=== PATIENT | female | born 1965 | race Caucasian/White ===

== ENCOUNTER 2019-02-28 07:19 | Emergency (ER) | payer BC, SELFPAY ==
[2019-02-28 07:32] VITALS: BP 136/79; PULSE 83; RESP 20; TEMP 36.8; O2SAT 98
[2019-02-28 07:53] LABS: Abs Immature Grans 0.01 k/cumm (0.0-0.09); Absolute Basophil Count 0.03 k/cumm (0.0-0.2); Absolute Eosinophil Count 0.13 k/cumm (0.0-0.7); Absolute Lymphocyte Count 1.66 k/cumm (1.2-3.4); Absolute Monocyte Count 0.49 k/cumm (0.11-0.7); Basophils % 0.5; Eosinophils % 2.3; HCT 44.2 % (36.0-46.0); HGB 14.7 g/dL (12.0-15.5); Immature Grans % 0.2; Mean Corp. HGB Concentration 33.3 g/dL (32.0-36.0); Mean Corpuscular Hemoglobin 31.4 pg (27.0-33.0); Mean Corpuscular Volume 94.4 fL (80-95); Mean Platelet Volume 10.4 fL (8.0-11.0); Monocytes % 8.6; Neutrophils % 59.4; Platelet Count 266 x1000/uL (130-400); RBC 4.68 m/cumm (4.00-5.20); RBC Distribution Width 13.5 % (11.7-14.6); White Blood Cell Count 5.72 k/cumm (4.4-10.8)
--- NOTE | 2019-02-28 07:56 | DI.CT_ITS ---
SYMPTOM/DIAGNOSIS: RLQ PAIN ABDOMEN AND PELVIC CT: There are no prior comparison exams. The exam was performed after IV contrast. The lung bases are clear. The liver, gallbladder, spleen, pancreas, kidneys and adrenals have a normal appearance. The appendix is normal. There is diverticulosis involving the lower descending and sigmoid colon but no evidence of diverticulitis. There is no bowel dilatation or wall thickening. There is no free air or free fluid. The uterus, ovaries and bladder are unremarkable. No suspicious bony abnormalities are seen. IMPRESSION: Diverticulosis without evidence of diverticulitis. No acute abnormality is seen.
--- NOTE | 2019-02-28 07:56 | ED.GENADUL_ITS ---
Discharge Plan Disposition Patient Disposition: HOME Condition: Stable Discharge Details Chief Complaint: Abd Prob Clinical Impression: Abdominal pain, Hemorrhoid Primary Care Provider: Tayler Marshall V ED Provider: Babak Quintanilla Home Meds and New Rx's Prescriptions: Continued levothyroxine [Synthroid] 112 MCG tablet 112 mcg PO DAILY RF: 0 alprazolam [Xanax] 2 MG tablet 2 mg PO PRN RF: 0 Humira 40 MG/0.8 ML kit 40 mg SQ TWice a month RF: 0 Discharge Instructions Instructions: Hemorrhoids (ED) Additional Instructions: you should be contacted for an appointment with general surgery if you feel you are having more pain, bleeding or have new symptoms such as chest pain/pressure or difficulty breathing return to the emergency department Medical Decision Making 54 yo female comes in with several days of rectal bleeding intermittently with bowel movements and some pain with bowel movements, then developed rlq pain. She denies chest pain or sob, no syncope. She has rlq pain without guarding on exam otherwise unremarkable abdominal exam. She is in no distress on exam speaking in full sentences. She does have a hemorrhoid at 9 oclock position on exam without any bleeding now even on internal exam without other abnormalities. Suspect bleeding is due to hemorrhoid but will eval for significant anemia and given rlq pain will image to eval for possible appendicitis pt's labs are unremarkable and remains stable, ct per Dr. Daley unremarkable. Given no bleeding here, no significant anemia and has external hemorrohid feel she can be d/c'd and f/u with general surgery. Return precautions given Differential Diagnosis hemorrhoid, fissure, appendicitis Imaging Data Radiologic Study: Attestation: I personally reviewed and interpreted this imaging study as follows: Imaging: CT Scan Radiologist's impression: no acute findings per Dr. Daley Lab Data Lab results reviewed: Yes I reviewed the patient's lab results. ECG Data Attestation: I personally reviewed and interpreted this ECG (s) as follows: Prior ECG tracings: not available for review Interpretation: sinus rhythm, rate of 71, pr 126, qtc 413, no acute st t wave ischemic findings HPI General Mode of arrival: ambulatory . Date/Time Provider Initiated Documentation: 02/28/19 07:27 . Limitations to Documentation: no limitations . Information obtained by: patient . History of Present Illness 54 year old F presents to the emergency department with the chief complaint of rectal bleeding, described as mild, and it has been constant. No relieving factors improve symptom(s), No exacerbating factors reported . Patient did receive the following treatments prior to arrival, none Related Data Home Medications Medication Instructions Recorded Confirmed levothyroxine [Synthroid] 112 mcg PO DAILY tab-cap 03/19/13 02/28/19 alprazolam [Xanax] 2 mg PO PRN 05/20/14 02/28/19 Humira 40 mg SQ TWice a month kit 09/29/15 02/28/19 Allergies Allergy/AdvReac Type Severity Reaction Status Date / Time ciprofloxacin HCl Allergy Severe SOB, Unverified 02/28/19 07:39 [From Cipro] TONGUE SWELLING Penicillins Allergy Mild UPSET Unverified 02/28/19 07:39 STOMACH General Stated Complaint: Abd Prob VINICIO: 3 Review of Systems Review of Systems All systems reviewed & are unremarkable except as noted in HPI and below Constitutional Denies chills, Denies fever(s) and Denies weakness Cardiovascular Denies chest pain and Denies dyspnea Respiratory Denies cough and Denies dyspnea Gastrointestinal Denies nausea and Denies vomiting Integumentary/Breasts Denies rash Neurologic Denies weakness [facility], [facility] Medical History Anxiety disorder Depression Hypothyroidism Surgical History Removal cyst R ear 09/22 Removal nodules throat10/2012 Social History Smoking/Tobacco Use Status: Current every day Alcohol Intake: current Alcohol Intake frequency: 3 or more drinks per day Substance use type: does not use Do you feel safe at home: Yes Do you feel safe in your relationship?: Yes Exam Const General: no acute distress Orientation: alert HENMT Head: normal to inspection Ears: external ears normal General nose exam: external nose normal Mouth: moist mucous membranes Eyes General: appearance normal, both eyes and all related structures Neck Neck: normal visual inspection Resp Effort & Inspection: normal respiratory effort and able to speak in complete sentences Cardio Rate: regular rate GI Inspection: normal to inspection Palpation: soft Skin General skin exam: no rashes or lesions noted Neuro General: alert and oriented x3 Extrem General: normal to inspection Psych Mental Status: mental status grossly normal Course Vital Signs Temperature 36.8 C 02/28/19 07:32 Pulse 83 02/28/19 07:32 Respiratory Rate 20 02/28/19 07:32 Blood Pressure 136/79 02/28/19 07:32 Pulse Oximetry 98 02/28/19 07:32 Temperature 36.8 C 02/28/19 07:32 Temperature Source Temporal Artery Scan 02/28/19 07:32 Pulse 83 02/28/19 07:32 Respiratory Rate 20 02/28/19 07:32 Respiratory Effort Non-Labored 02/28/19 07:32 Blood Pressure 136/79 02/28/19 07:32 Pulse Oximetry 98 02/28/19 07:32 Oxygen Delivery Method Room Air 02/28/19 07:32 Oxygen Flow Rate 0 02/28/19 07:32
[2019-02-28 08:09] LABS: ALT 29 U/L (12-78); AST 19 U/L (15-37); Albumin 3.8 g/dL (3.4-5.0); Alkaline Phosphatase 88 U/L (46-116); BUN 12 mg/dL (7-18); Bilirubin, Total 0.3 mg/dL (0.2-1.0); CREATININE 0.81 mg/dL (0.55-1.02); Calcium 9.5 mg/dL (8.5-10.1); Chloride 102 mmol/L (98-107); Glucose 101 mg/dL (70-100); Magnesium 1.9 mg/dL (1.8-2.4); Potassium 4.1 mmol/L (3.5-5.1); Sodium 138 mmol/L (136-145); Total Protein 7.8 g/dL (6.4-8.2)
[2019-02-28 08:11] LABS: Troponin I < 0.02 ng/mL (0.00-0.06)
[2019-02-28] MEDS: Omnipaque 350 MG/ML 100 ML BTL IJ (08:36)
[2019-02-28] MEDS: Lactated Ringers 1,000 ML 125 ML IV (08:55)
[2019-02-28 09:06] VITALS: BP 136/79; PULSE 83; RESP 20; TEMP 36.8; O2SAT 98
--- NOTE | 2019-02-28 11:01 | PDOC.ERCMPRO ---
Care Management Progress Note 02/28-Dr. Quintanilla requested assistance with a general surgery f/u within one week for bleeding hemorrhoid. Referral faxed to [facility] General Surgery this am.
--- NOTE | 2019-02-28 11:02 | CMPROGNOTE_ITS ---
Care Management Progress Note 02/28-Dr. Quintanilla requested assistance with a general surgery f/u within one week for bleeding hemorrhoid. Referral faxed to [facility] General Surgery this am.
== END 2019-02-28 09:05 | disposition home or self-care (01) ==
PROVIDERS: Emergency Medicine; Emergency Provider Emergency Medicine; PCP Family Medicine
DX: R10.31 Right lower quadrant pain (principal); K64.9 Unspecified hemorrhoids
CPT/HCPCS: 36415; 80053; 86850; 86900; 86901; 93005; 99285; 74177; 83735; 84484; 85025; 93010; J3490

== ENCOUNTER 2019-04-08 06:15 | Day surgery (SDC) | payer BC, SELFPAY ==
--- NOTE | 2019-04-08 06:26 | W.COLOREPORT ---
Date of service: 04/08/19 Time of Service: 07:30 Colonoscopy Report Date of procedure: 04/08/19 Pre-op diagnosis general: Colon Cancer Screening, Hemorrhoids Post-op diagnosis procedure note: other (Colorectal polyps, internal hemorrhoids, sigmoid diverticulosis) Procedure: Colonoscopy with polypectomies x6 Anoscopy and internal hemorrhoid banding x3 Surgeon: Thao Young Anesthesia proc note operative: other (General/ ASA 2/Kassidy Jack CRNA) Estimated blood loss (mL): 5 Pathology: other (Cecal polyp, sigmoid polyp, rectal polyp x4) Complications: None Disposition: same day Indications: Mrs. Souza is a pleasant 54 year old female who is here today for a screening colonoscopy. She also has had intermittent rectal bleeding from internal hemorrhoids. Risks, benefits and complications have been reviewed. Complications include but are not limited to bleeding, pain, perforation, missed small lesion/polyp, sore throat, aspiration and adverse reaction to the medications. Questions were entertained and answered to their satisfaction and they wished to proceed. No guarantees were given or implied. Prep: Miralax/Dulcolax Procedure Start Time: 07:32 Procedure End Time: 08:09 Retraction Time: 26 minutes Findings: Severe sigmoid diverticulosis Multiple polyps and internal hemorrhoids Procedure Description: After informed consent was obtained the patient was taken to the procedure room and placed in a left decubitous position. Monitors were applied and a time out was done. The patients name, date of , procedure, allergies to medications and metal in their body was reviewed. The patient was then sedated. Once sedated and comfortable a rectal exam was done. External exam was normal. Internal exam revealed a normal sphincter tone and no palpable masses. The scope was then introduced and retro-flexed. Grade 2 internal hemorrhoids were identified. The scope was then advanced to the cecum without difficulty. The TI and appendiceal orifice were identified. The prep was adequate. The scope was then slowly retracted over 26 minutes back into the rectum. Polyps were removed with cold forceps in the cecum, sigmoid colon, and rectum X4. Severe sigmoid diverticulosis was noted as well. The scope was removed. Anoscopy was the performed and 3 internal hemorrhoids were banded without difficulty. The patient was woken up and taken back to Same day surgery in stable condition. The patient tolerated the procedure well and there were no immediate complications. Follow up: The patient should follow up in 3-5 years unless they develop changes in bowel habits or other new gastrointestinal complaints.
[2019-04-08 06:29] VITALS: BP 112/79; PULSE 80; RESP 19; TEMP 36.4; O2SAT 97
--- NOTE | 2019-04-08 06:29 | W.PM.DSUDISC ---
Discharge Plan Disposition Patient Disposition: HOME Condition: Good Discharge Details Reason For Visit: Colon Cancer Screening and hemorrhoid banding Attending Provider: Thao Young Primary Care Provider: Tayler Marshall V Home Meds and New Rx's Prescriptions: Continued levothyroxine [Synthroid] 112 MCG tablet 112 mcg PO DAILY RF: 0 alprazolam [Xanax] 2 MG tablet 2 mg PO PRN RF: 0 Humira 40 MG/0.8 ML kit 40 mg SQ TWice a month RF: 0 Discontinued bisacodyl [Dulcolax (bisacodyl)] 5 mg tablet,delayed release (DR/EC) 5 mg PO ONCE Qty: 4 RF: 0 polyethylene glycol 3350 17 gram powder in packet 255 g PO DAILY Qty: 15 RF: 0 No Action acetaminophen 500 mg Tablet 1,000 mg PO PRN PRNRF: 0 Discharge Instructions Instructions: Colonoscopy (DC), Rubber Band Ligation (DC), Diverticulosis (DC), Hemorrhoids (DC), Colorectal Polyps (DC) Additional Instructions: Findings: 1. 6 polyps 2. Diverticulosis 3. Internal hemorrhoids Follow up: 3-5 years Please call if you develop: fevers >101.5 Nausea or Vomiting Abdominal pain that is not transient DAY SURGERY UNIT POST COLONOSCOPY INSTRUCTIONS 1. Because there will be medication in your system for the next 24 hours, you may feel a little sleepy. Your coordination will be affected. Therefore: a. Do not drive or operate dangerous equipment for 24 hours. b. Do not drink alcohol beverages for 24 hours (not even beer). c. Plan to go home and rest for the day. 2. Generally there are no restrictions on your activity after a day or so has gone by, but you may feel a bit fatigued for a few days. 3 After you arrive home you may have a light meal and return to a normal diet as you can tolerate it without feeling sick to your stomach. 4. After surgery, you may feel pain or discomfort. This should be only transient, but if it persists please contact your doctor. 5. If there are any questions regarding the findings of your procedure, please feel free to contact your doctor. 6. If you are unable to contact your doctor with a problem, contact the hospital at [phone]. 7. Continue all your regular medications unless directed otherwise. I understand the above instructions and have no questions. Signature of Patient or Responsible Adult Escort Date/Time Name of Responsible Adult Escort Signature of Nurse Date/Time Activity:: Activity as Tolerated Diet:: High Fiber diet Discharge Orders Discharge Orders: Discharge Order (Routine); Ordered 04/08/19 Ordered By: Thao Young DS: Diagnosis Discharge Diagnosis (1) S/P colonoscopy: Status: Acute (2) Diverticulosis large intestine w/o perforation or abscess w/o bleeding: Status: Acute (3) Colorectal polyps: Status: Acute (4) Internal hemorrhoids: Status: Acute (5) H/O hemorrhoidectomy: Status: Chronic
[2019-04-08] MEDS: Lactated Ringers 1,000 ML 80 ML IV ×2 (06:53→09:25)
--- NOTE | 2019-04-08 07:35 | BOWEL_PTH ---
PATIENT: Jazmine Souza LOC: [facility] U#:[id number] AGE/SX: 54/F ROOM: RE04/08/[address]: Thao Young MD : [id number] BED: DIS: 04/08/2019 SPEC #: [id number] RECD: 04/08/19 12:42 STATUS: MUMTAZ REQ #: [id number] CARMEN: 04/08/19 07:[address]: Thao Young DEPT: Surgical Specimen RECD BY: Aaliyah Crouch ENTERED: 04/08/19 12:43 SP TYPE: Bowel OTHR DR: Tayler Marshall V Tissues: 1 - BIOPSY BOWEL 2 - BIOPSY BOWEL 3 - BIOPSY BOWEL Procedures: GROSS AND MICRO LEVEL 4 Comments: [id number]
[2019-04-08] MEDS: Normal Saline Flush 10 ML SYR IV (08:39)
[2019-04-08] MEDS: Ketorolac 30 MG/ML VIAL IVP (08:39)
[2019-04-08 09:05] VITALS: BP 115/75; PULSE 70; RESP 16; TEMP 37; O2SAT 98
== END 2019-04-08 09:30 | disposition home or self-care (01) ==
LOC: SUR 10:18
PROVIDERS: PCP Family Medicine; Visit Provider Surgery
PROC: 0DJD8ZZ Inspection of Lower Intestinal Tract, Via Natural or Artificial Opening Endoscopic (ICD-10-PCS; CPT 45378; principal; 2019-04-08 07:30)
DX: Z12.11 Encounter for screening for malignant neoplasm of colon (principal); K64.1 Second degree hemorrhoids; K57.30 Diverticulosis of large intestine without perforation or abscess without bleeding; K63.5 Polyp of colon; K62.1 Rectal polyp
CPT/HCPCS: 45398; 81025; 88305; J1885

== ENCOUNTER 2019-05-20 15:21 | Outpatient (REF) | payer BC, SELFPAY ==
[2019-05-20 22:49] LABS: Calculated LDL 208 mg/dL; Cholesterol 295 mg/dL (50-200); HDL Cholesterol 59 mg/dL (40-60); TSH (W/Ref FT4) 6.77 uIU/mL (0.36-3.74); Triglyceride 144 mg/dL (30-150)
[2019-05-20 23:06] LABS: FREE T4 1.02 ng/dL (0.76-1.46)
[2019-05-22 10:53] LABS: Lyme Ab w Rflx to Lyme Confirm Negative
[2019-05-23 17:21] LABS: Anaplasma phagocytophilum Negative (Negative); B. miyamotoi PCR Negative (Negative); Babesia divergens/MO-1 Negative (Negative); Babesia duncani Negative (Negative); Babesia microti Negative (Negative); Ehrlichia chaffeensis Negative (Negative); Ehrlichia ewingii/canis Negative (Negative); Ehrlichia muris eauclairensis Negative (Negative)
== END 2019-05-20 15:41 ==
LOC: NCHCN 15:21
PROVIDERS: PCP Family Medicine; Visit Provider Family Medicine
DX: Z00.00 Encounter for general adult medical examination without abnormal findings (principal); Z13.29 Encounter for screening for other suspected endocrine disorder; Z13.220 Encounter for screening for lipoid disorders; W57.XXXA Bitten or stung by nonvenomous insect and other nonvenomous arthropods, initial encounter; T14.8XXA Other injury of unspecified body region, initial encounter
CPT/HCPCS: 80061; 83721; 87798; 84439; 84443; 86618

== ENCOUNTER 2019-08-20 07:08 | Emergency (ER) | payer BC, SELFPAY ==
[2019-08-20 07:26] VITALS: BP 119/72; PULSE 86; RESP 20; TEMP 36.6; O2SAT 97
[2019-08-20 07:32] LABS: Bilirubin Negative (Negative); Blood Negative (Negative); Clarity Clear (Clear); Glucose Negative (Negative); Ketones Negative (Negative); Leukocyte Esterase Negative (Negative); Nitrite Negative (Negative); Urobilinogen 0.2 EU/dL (Up TO 0.2); pH 5.5 (5-8)
[2019-08-20 08:00] LABS: Abs Immature Grans 0.01 k/cumm (0.0-0.09); Absolute Basophil Count 0.03 k/cumm (0.0-0.2); Absolute Lymphocyte Count 1.35 k/cumm (1.2-3.4); Absolute Monocyte Count 0.37 k/cumm (0.11-0.7); Absolute Neutrophil Count 2.82 k/cumm (1.2-6.7); Basophils % 0.6; Eosinophils % 2.1; HCT 44.4 % (36.0-46.0); HGB 14.6 g/dL (12.0-15.5); Immature Grans % 0.2; Lymphocytes % 28.8; Mean Corp. HGB Concentration 32.9 g/dL (32.0-36.0); Mean Corpuscular Hemoglobin 30.4 pg (27.0-33.0); Mean Corpuscular Volume 92.3 fL (80-95); Monocytes % 7.9; Neutrophils % 60.4; Platelet Count 298 x1000/uL (130-400); RBC 4.81 m/cumm (4.00-5.20); RBC Distribution Width 12.5 % (11.7-14.6); White Blood Cell Count 4.68 k/cumm (4.4-10.8)
[2019-08-20] MEDS: Normal Saline 250 ML 500 ML IV (08:04)
--- NOTE | 2019-08-20 08:05 | ED.GENADUL_ITS ---
Discharge Plan Disposition Patient Disposition: HOME Condition: Stable Discharge Details Chief Complaint: Abd Prob Clinical Impression: Strain of right hip Primary Care Provider: Tayler Marshall V ED Provider: Aneesh Grover Home Meds and New Rx's Prescriptions: New methocarbamol 500 mg tablet 500 - 1,000 mg PO Q6H PRN (Reason: Back pain or spasm) Qty: 14 RF: 0 Continued alprazolam [Xanax] 2 MG tablet 2 mg PO PRN RF: 0 Humira 40 MG/0.8 ML kit 40 mg SQ TWice a month RF: 0 levothyroxine 125 mcg Tablet 125 mcg PO DAILY RF: 0 No Action cyclobenzaprine 10 mg Tablet 10 mg PO TID PRNRF: 0 Discharge Instructions Instructions: Muscle Strain (ED) Stand Alone Forms: Physical Therapy Referral, Work Release Medical Decision Making 54-year-old female presents from home stating that he had the abrupt onset of right hip pain radiated to her right flank while at rest yesterday. Seem to AB overnight after taking a muscle relaxant, but recurred with increased discomfort this morning. States she had increased flatus. No other changes to bowel or bladder habits. Her vital signs are normal, she is in quite a bit of discomfort. She is tender in the right flank in the right lower quadrant on exam. Given IV fluids, Toradol, as well as hydromorphone. Pain did improve with these interventions. She is not hypertensive or tachycardic. CBC, comprehensive panel, urinalysis are unremarkable. CT scan of the abdomen and pelvis without acute findings. Please see formal dictation. As CT scan excludes retroperitoneal or peritoneal acute process, no bony findings seen, would consider iliolumbar or piriformis syndrome. Patient seen by physical therapy and able to ambulate on her own without assistance with a narrow based gait and good heel strike. I will refer her for outpatient physical therapy. WIll offer lidoderm patch as well as methocarbamol as needed. HPI General Mode of arrival: ambulatory . Date/Time Provider Initiated Documentation: 08/20/19 07:24 . Limitations to Documentation: no limitations . Information obtained by: patient . History of Present Illness 54 year old F presents to the emergency department with the chief complaint of Right flank pain. Right hip pain, described as moderate and severe, Quality is described as constant, and is localized to the right. Patient abdomen and flank. Patient started experiencing this hour(s) and it has been intermittent. Medication improves symptom(s), Movement worsens symptoms . Patient notes denies fever/chills and nausea/vomiting. Patient did receive the following treatments prior to arrival, other (Muscle relaxant) Related Data Home Medications Medication Instructions Recorded Confirmed alprazolam [Xanax] 2 mg PO PRN 05/20/14 08/20/19 Humira 40 mg SQ TWice a month kit 09/29/15 08/20/19 cyclobenzaprine 10 mg PO TID PRN 08/20/19 08/20/19 levothyroxine 125 mcg PO DAILY 08/20/19 08/20/19 methocarbamol 500 - 1,000 mg PO Q6H PRN #14 tab 08/20/19 Previous Rx's Medication Instructions Recorded methocarbamol 500 - 1,000 mg PO Q6H PRN #14 tab 08/20/19 Allergies Allergy/AdvReac Type Severity Reaction Status Date / Time ciprofloxacin HCl Allergy Severe SOB, Unverified 08/20/19 07:35 [From Cipro] TONGUE SWELLING Penicillins AdvReac Mild UPSET Unverified 08/20/19 07:38 STOMACH General Stated Complaint: Abd Prob VINICIO: 3 Review of Systems Narrative: 6 systems reviewed and otherwise negative [facility] Medical History Anxiety disorder Colorectal polyps (Acute ~04/08/19) Depression Diverticulosis large intestine w/o perforation or abscess w/o bleeding (Acute ~04/08/19) Hidradenitis suppurativa (Acute) Groin- treated with Humara Hypothyroidism Internal hemorrhoids (Acute) Surgical History (Updated 04/08/19 @ 08:23 by Thao Young MD) H/O hemorrhoidectomy (Chronic ~04/08/19) Internal hemorrhoid banding x3 History of ear surgery (Acute) Pt. states Dr. Meneses placed a titanium ear canal in Right ear, pt. states she has 10% hearing in Right ear. Removal cyst R ear 09/22 Removal nodules throat10/2012 S/P colonoscopy (Acute ~04/08/19) Social History Smoking/Tobacco Use Status: Current every day Tobacco Type: cigarettes Alcohol Intake: current Alcohol Intake frequency: a few times a month Alcohol type: hard liquor Substance use type: does not use Do you feel safe at home: Yes Do you feel safe in your relationship?: Yes Additional Social history: not in current relationship Exam Narrative Exam Narrative: GEN: awake, alert, oriented 3. Pleasant, well groomed, interactive. HEAD: Normocephalic, atraumatic ENT: Mucous membranes moist, oropharynx unremarkable, External ear exam unremarkable EYES: PERRL, EOMI NECK: Full ROM, no HUMBERTO, no menigismus CHEST/RESP: Nontender, clear to auscultation bilateral, no wheeze/rhonchi/rales CARDIOVASCULAR: RRR, no murmur, rub hawa. 2+ Rad pulse bilateral ABDOMEN: Soft, tender right lower quadrant, mild rebound present. No mass. +Bowel sounds, slightly increased Back: Right flank tender to percussion EXT: Full ROM, no edema, no rash. Motor is 5 out of 5. There is tenderness with anterior flexion as well as rotation and abduction of the right hip. There are 2+ femoral and dorsalis pedis pulses bilaterally. Capillary refill is the same and 1 to 2 seconds bilaterally Neuro: Grossly normal neurologic exam, conversant, interactive. Psych: Speech fluent, thoughts congruent, affect normal Course Vital Signs Vital signs: Vital Signs Temperature 36.6 C 08/20/19 07:26 Pulse 86 08/20/19 07:26 Respiratory Rate 20 08/20/19 07:26 Blood Pressure 119/72 08/20/19 07:26 Pulse Oximetry 97 08/20/19 07:26 Temperature 36.6 C 08/20/19 07:26 Temperature Source Temporal Artery Scan 08/20/19 07:26 Pulse 86 08/20/19 07:26 Respiratory Rate 20 08/20/19 07:26 Respiratory Effort Non-Labored 08/20/19 07:34 Blood Pressure 119/72 08/20/19 07:26 Blood Pressure Position Supine 08/20/19 07:26 Pulse Oximetry 97 08/20/19 07:26 Oxygen Delivery Method Room Air 08/20/19 07:26 Oxygen Flow Rate 0 08/20/19 07:26 Pain Level 10 08/20/19 07:26 Lab/Test Results Lab/Test Results: Laboratory Tests Range/Units 08/20/19 08/20/19 07:25 07:50 WBC (4.4-10.8) k/cumm 4.68 RBC (4.00-5.20) m/cumm 4.81 Hgb (12.0-15.5) g/dL 14.6 Hct (36.0-46.0) % 44.4 MCV (80-95) fL 92.3 MCH (27.0-33.0) pg 30.4 MCHC (32.0-36.0) g/dL 32.9 RDW (11.7-14.6) % 12.5 Plt Count (130-400) x1000/uL 298 MPV (8.0-11.0) fL 10.0 Immature Gran % 0.2 Neutrophils % 60.4 Lymphocytes % 28.8 Monocytes % 7.9 Eosinophils % 2.1 Basophils % 0.6 Absolute Neutrophils (1.2-6.7) k/cumm 2.82 Absolute Lymphocytes (1.2-3.4) k/cumm 1.35 Absolute Monocytes (0.11-0.7) k/cumm 0.37 Absolute Eosinophils (0.0-0.7) k/cumm 0.10 Absolute Basophils (0.0-0.2) k/cumm 0.03 Urine Color (Yellow) Yellow Urine Clarity (Clear) Clear Urine pH (5-8) 5.5 Ur Specific [place] (1.005-1.025) 1.010 Urine Protein (Negative) mg/dL Negative Urine Ketones (Negative) mg/dL Negative Urine Blood (Negative) Negative Urine Nitrite (Negative) Negative Urine Bilirubin (Negative) Negative Urine Urobilinogen (Up TO 0.2) EU/dL 0.2 Ur Leukocyte Esterase (Negative) Negative Urine Glucose (Negative) mg/dL Negative
[2019-08-20] MEDS: HYDROmorphone 2 MG/ML VIAL 0.5 MG IVP ×3 (08:06→11:04)
[2019-08-20 08:16] LABS: ALT 22 U/L (14-59); AST 17 U/L (15-37); Albumin 3.7 g/dL (3.4-5.0); Alkaline Phosphatase 91 U/L (46-116); Anion Gap 9.9 mmol/L (3-11); BUN 8 mg/dL (7-18); Bilirubin, Total 0.4 mg/dL (0.2-1.0); CO2 25.1 mmol/L (21.0-32.0); CREATININE 0.73 mg/dL (0.55-1.02); Calcium 9.2 mg/dL (8.5-10.1); Chloride 103 mmol/L (98-107); Glucose 103 mg/dL (70-100); Potassium 4.3 mmol/L (3.5-5.1); Sodium 138 mmol/L (136-145); Total Protein 7.6 g/dL (6.4-8.2)
--- NOTE | 2019-08-20 08:30 | DI.CT_ITS ---
EXAM: CT ABDOMEN PELVIS WO CLINICAL HISTORY: r flank pain TECHNIQUE: CT examination of the abdomen and pelvis was performed without contrast administration. COMPARISON: CT ABDOMEN PELVIS W from 02/28/2019 FINDINGS: Images obtained through the lung bases are unremarkable. Liver, spleen, pancreas, gallbladder and b ile ducts are unremarkable by noncontrast criteria. Tiny left inguinal fat containing hernia and umb ilical fat containing hernia is noted. No adenopathy in the abdomen or pelvis. Appendix appears nor mal. No evidence of diverticulitis or bowel obstruction. Electrical Maintenance Worker structures appear intact. Abdominal a giles is of normal diameter. Adrenals appear normal bilaterally. Kidneys are normal in size and shape. No hydronephrosis, nephrolithiasis or ureterolithiasis. Urina ry bladder unremarkable by noncontrast criteria. IMPRESSION: No evidence of acute process. No evidence of urinary tract calcification or obstruction.
[2019-08-20] MEDS: Normal Saline 250 ML IV (08:35)
[2019-08-20] MEDS: Ketorolac 30 MG/ML VIAL IVP (08:55)
[2019-08-20 09:10] VITALS: BP 119/73; PULSE 82; O2SAT 95
[2019-08-20 10:57] VITALS: BP 119/63; PULSE 86; O2SAT 96
--- NOTE | 2019-08-20 11:01 | PT.INIE ---
Date of service: 08/20/19 Time of Service: 11:17 PT Notes Inpatient Physical Therapy Evaluation Date: 08/20/2019 Referring Doctor: Aneesh Grover MD PT Orders: PT CONSULT: Safety consult for /DC Precautions: Fall. Standard. Activity as tolerated Patient Profile/Admitting Diagnosis: Patient is a 54-year-old female with past medical history significant for anxiety disorder, depression, and internal hemorrhoids S/P internal hemorrhoids banding x 3who presented to the ED on 08/20/2019 with chief complaints of significant right flank pain. PMHX: Medical History Anxiety disorder Colorectal polyps (Acute ~04/08/19) Depression Diverticulosis large intestine w/o perforation or abscess w/o bleeding (Acute ~04/08/19) Hidradenitis suppurativa (Acute) Groin- treated with Humara Hypothyroidism Internal hemorrhoids (Acute) Surgical History (Updated 04/08/19 @ 08:23 by Thao Young MD) H/O hemorrhoidectomy (Chronic ~04/08/19) Internal hemorrhoid banding x3 History of ear surgery (Acute) Pt. states Dr. Meneses placed a titanium ear canal in Right ear, pt. states she has 10% hearing in Right ear. Removal cyst R ear 09/22 Removal nodules throat10/2012 S/P colonoscopy (Acute ~04/08/19) Social History/Home Situation: Patient lives alone with son in a 1-floor house with 4 steps to enter with rails on both sides. 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 Equipment Owned/DME: None Subjective: Patient is agreeable to a PT consult. She reports that her symptoms began when she forcefully pulled on the manual lever of the recliner with her right hand and strongly used her legs to push on recliner leg rest downward and backward all in one abrupt movement to stand up after watching TV for about half an hour. She immediately felt pain on the anterior part of her hip that radiated to the posterior hip and down to the back of the hip and thigh. She has since needed the help of her son with all bed mobility and transfer task performance. She was teary-eyed during testing of her low back due to pain. Patient stated that lying flat hurts. Objective: General Observation: Patient seen lying on the reclining on the ICU bed with head of bed elevated to about 45 degrees. Emotional. Mental Status: Alert and oriented x4 Pain: Transition from sit to supine and vice versa causes 10/10 pain on the right hip area. ROM: Right Upper Extremity: Shoulder Flexion WFL. Shoulder abduction WFL. Elbow flexion WFL. Wrist flexion WFL. Opening and closing of hand WFL. Left Upper Extremity: Shoulder Flexion WFL. Shoulder abduction WFL. Elbow flexion WFL. Wrist flexion WFL. Opening and closing of hand WFL. Right Lower Extremity: Hip flexion 0-20. Knee flexion WFL. Ankle dorsiflexion WFL. Ankle plantarflexion WFL. Left Lower Extremity: Hip flexion 0-60. Knee flexion WFL. Ankle dorsiflexion WFL. Ankle plantarflexion WFL. Strength: Right Upper Extremity: Shoulder flexors 5/5. Shoulder abductors 5/5. Elbow flexors 5/5. Elbow extensors 5/5. Carbon Dioxide Operator strong. Left Upper Extremity: Shoulder flexors 5/5. Shoulder abductors 5/5. Elbow flexors 5/5. Elbow extensors 5/5. Carbon Dioxide Operator strong. Right Lower Extremity: Hip flexion 3-/5 which allowed assumption of flexion, abduction, and external rotation (MANJU position) with minimal difficulty due to pain. Knee flexors 4-/5. Knee extensors 4-/5. Ankle dorsiflexors 5/5. Ankle plantarflexors 5/5. Left Lower Extremity:Hip flexors 3-/5 which allowed assumption of flexion, abduction, and external rotation (MANJU position) with minimal difficulty due to pain. Knee flexors 4/5. Knee extensors 4/5. Ankle dorsiflexors 5/5. Ankle plantarflexors 5/5. Sensation: Intact as to pain and pressure on bilateral lower extremities. Bed Mobility/Transfers: Rolling independent Supine to sit minimal assist with pain report on R hip at 4/10 Sit to supine minimal assist pain report on R hip at 7/10 Sit to stand independent Stand to sit independent Bed to chair minimal assist with pain report on R hip at 7/10 Chair to bed minimal assist with pain report on R hip at 7/10 Gait: Patient was able to tolerate level surface ambulation of up to 45 feet with a front wheeled walker and 60 feet without an assistive device with mild antalgia noted. No LOB was observed. Patient did demonstrate mild listing of the trunk to the left. Balance: Static Sitting: Normal Dynamic Sitting: Fair Static Standing: Good Dynamic Standing: Good Special Tests: Mobility Limitations Standardized Measure [facility] AM-PAC 6 clicks Basic Mobility Inpatient Short Form: Raw Score: 16 CMS Score: 54% deficit Informed Consent/Education: Patient instructed in purpose of PT consult and treatment. MANJU test elicited pain more on the R hip than on the L to about 6/10 with muscle guarding felt. SLR on both sides limited with R>L. Back flexion exercises consisting on posterior pelvic tilts, unilateral active assistive [id number], and pelvic rocking within pain-free range were provided mild to moderate relief which allowed further mobility testing in standing and walking. Assessment: Patient is a 54-year-old female with past medical history significant for anxiety disorder, depression, and internal hemorrhoids S/P internal hemorrhoids banding x 3who presented to the ED on 08/20/2019 with chief complaints of right flank pain. Palpation and examination of the low back area, sacroiliac joints, and bilateral hips demonstrated significant spasm of the right internal and external abdominal obliques as well as R lumbar parasternals and the R sartorius. Patient presents with clinical signs and symptoms consistent with current/admitting diagnoses that have resulted to mobility limitations, gait instability, generalized weakness, and impairment of motor control as demonstrated by the following impairment level findings: 1. Pain on R anterior hip and thigh, pain on R lumbar parasternals 2. Decreased strength to B LE major muscle groups 3. Impaired standing balance 4. Impaired activity tolerance 5. Limitation of joint range of motion in R hip Impairments are contributing to the following functional limitations: 1. Dependent bed mobility skills 2. Increased dependence with transfers 3. Increase completion time for mobility ADL performance Patient is [place] a [id number] low complexity based on the following: History: Patient is a 54-year-old female with past medical history significant for anxiety disorder, depression, and internal hemorrhoids S/P internal hemorrhoids banding x 3who presented to the ED on 08/20/2019 with chief complaints of right flank pain. Examination: Demonstrable impairment in strength, balance, and range of motion with underlying impairments and functional limitations as documented above Presentation:Evolving Decision Makin low complexity Goals: N/A. Patient is evaluation only. Plan of Care/Treatment Plan: N/A. Patient is evaluation only. DISCHARGE RECOMMENDATIONS: Discharge to home with son. She will benefit from outpatient physical therapy for pain management and to facilitate return to prior level of function. TREATMENT CODE/TIME: 06735 x 33 minutes beginning at 10:17 AM. Thank you very much for this referral. Ashlyn Harrington PT, DPT, CLT [facility]
[2019-08-20] MEDS: Lidocaine 5% Patch 1 PATCH TP (11:07)
[2019-08-20] MEDS: Methocarbamol 750 MG TAB PO (11:10)
[2019-08-20 11:33] VITALS: BP 98/62; PULSE 82; RESP 16; TEMP 36.5; O2SAT 96
[2019-08-20 11:34] VITALS: BP 98/62; PULSE 82; RESP 16; TEMP 36.5; O2SAT 96
== END 2019-08-20 11:32 | disposition home or self-care (01) ==
PROVIDERS: Student in an Organized Health Care Education/Training Program; Emergency Provider Emergency Medicine; PCP Family Medicine
DX: S76.011A Strain of muscle, fascia and tendon of right hip, initial encounter (principal); X58.XXXA Exposure to other specified factors, initial encounter
CPT/HCPCS: 80053; 96361; 96374; 96376; 97161; 99285; 74176; 81003; 85025; 99284; J1885

== ENCOUNTER 2021-02-07 13:03 | Outpatient (REF) | payer BC, SELFPAY ==
[2021-02-07 16:14] LABS: Abs Immature Grans 0.03 10^3/uL (0.0-0.06); Absolute Basophil Count 0.05 10^3/uL (0.0-0.2); Absolute Eosinophil Count 0.07 10^3/uL (0.0-0.7); Absolute Lymphocyte Count 1.35 10^3/uL (1.2-3.4); Absolute Monocyte Count 0.73 10^3/uL (0.1-0.8); Absolute Neutrophil Count 6.17 10^3/uL (1.2-6.7); Basophils % 0.6; Eosinophils % 0.8; HCT 42.1 % (36.0-46.0); HGB 13.7 g/dL (11.2-15.7); Immature Grans % 0.4; Lymphocytes % 16.1; MCH 29.8 pg (27.0-33.0); MCHC 32.5 % (32.0-36.0); MCV 91.5 fL (80-95); MPV 10.3 fL (8.0-11.0); Monocytes % 8.7; Neutrophils % 73.4; Nucleated RBC 0 %; Platelet Count 323 10^3/uL (130-400); RDW 13.1 % (11.7-14.6)
[2021-02-07 16:35] LABS: ALT 18 U/L (14-59); AST 13 U/L (15-37); Albumin 3.4 g/dL (3.4-5.0); Alkaline Phosphatase 101 U/L (46-116); Amylase 20 U/L (25-115); Anion Gap 8.1 mmol/L (3-11); BUN 10 mg/dL (7-18); Bilirubin, Total 0.3 mg/dL (0.2-1.0); CO2 26.9 mmol/L (21.0-32.0); CREATININE 0.8 mg/dL (0.55-1.02); Calcium 9.3 mg/dL (8.5-10.1); Chloride 101 mmol/L (98-107); Glucose 94 mg/dL (74-106); Lipase 80 U/L (73-393); Potassium 4.8 mmol/L (3.5-5.1); Sodium 136 mmol/L (136-145); Total Protein 6.9 g/dL (6.4-8.2)
== END 2021-02-07 13:04 | disposition home or self-care (01) ==
LOC: NCHCN 13:03
PROVIDERS: PCP Family Medicine; Visit Provider Nurse Practitioner Family
DX: R10.30 Lower abdominal pain, unspecified (principal); R50.9 Fever, unspecified; R82.998 Other abnormal findings in urine
CPT/HCPCS: 80053; 83690; 82150; 85025; 87086

== ENCOUNTER 2021-02-10 17:42 | Inpatient (IN) | payer BC, SELFPAY ==
[2021-02-10 17:54] VITALS: BP 131/85; PULSE 114; RESP 20; O2SAT 98
--- NOTE | 2021-02-10 18:09 | DI.CT_ITS ---
Exam(s) CT ABDOMEN PELVIS W EXAM: CT ABDOMEN PELVIS W CLINICAL HISTORY: diverticulitis, failing PO antibiotics TECHNIQUE: Imaging Protocol: Axial computed tomography images with coronal and sagittal reformatted images were created and reviewed CONTRAST MATERIAL: Intravenous: Omnipaque 350 Contrast volume:100 mL Oral: No COMPARISON: CT CT ABDOMEN PELVIS W from 02/07/2021 FINDINGS: ABDOMEN: Lung Bases: There is a stable right lower lobe pulmonary nodule. Mild dependent atelectasis. Liver: Normal density. No measurable mass. Portal, Superior Mesenteric, and Splenic Veins: Unremarkable. Gallbladder and Biliary Tract: No radiodense calculus or dilation. Pancreas: Normal density. No inflammatory process. There are few stable tiny calcifications in the head of the pancreas. Spleen: Normal. Adrenals: No masses seen. Kidneys: Normal size, contour and axis. No radiodense stones or obstructive uropathy. There is a tiny hypodensity in the right kidney. It is too small for further characterization, but likely reflects a small cyst. No further follow-up is recommended. Abdominal Aorta: Abdominal portion non-dilated. Mild atherosclerosis. Bowel: There is no evidence of bowel obstruction. There is diverticulosis present in the descending and sigmoid colon. There is persistent thickening of the wall of the mid sigmoid colon with pericolo eugenia inflammatory change consistent with acute diverticulitis. There is no abscess or free air. The remainder of the bowel is unremarkable. Appendix is unremarkable. Peritoneal Cavity: No ascites, collection or mesenteric inflammatory response. No free air. Lymph Nodes: There are mild reactive lymph nodes seen in the pelvis and right periaortic region. Bones: Within normal limits for the patient's age. Soft Tissues: Unremarkable. PELVIS: Bladder: Symmetric distention, no gross wall thickening. Reproductive Organs: Unremarkable as visualized. Lymph Nodes: Please see above. Bones: Within normal limits for the patient's age. IMPRESSION: Slight progression in the inflammatory changes and bowel wall thickening in the sigmoid colon still c onsistent with acute diverticulitis. No abscess or free air. RADIATION DOSE DELIVERED: Total DLP DATA REPOSITORY: All CT scans at this facility are submitted to the National Radiology Data Registry (NRDR) Dose Index Registry (DIR) with the [employer] (A[employer]). RADIATION OPTIMIZATION: All CT scans at this facility use at least one of these dose optimization te chniques: automated exposure control; mA and/or kV adjustment per patient size (includes targeted exa ms where dose is matched to clinical indication); or iterative reconstruction.
[2021-02-10] MEDS: Normal Saline 1,000 ML 1000 ML IV (18:27)
[2021-02-10 18:29] LABS: Abs Immature Grans 0.04 10^3/uL (0.0-0.06); Absolute Basophil Count 0.04 10^3/uL (0.0-0.2); Absolute Eosinophil Count 0.15 10^3/uL (0.0-0.7); Absolute Lymphocyte Count 2.17 10^3/uL (1.2-3.4); Absolute Monocyte Count 0.74 10^3/uL (0.1-0.8); Absolute Neutrophil Count 5.39 10^3/uL (1.2-6.7); Basophils % 0.5; Eosinophils % 1.8; HCT 42.7 % (36.0-46.0); HGB 14.1 g/dL (11.2-15.7); Immature Grans % 0.5; Lymphocytes % 25.4; MCH 30.1 pg (27.0-33.0); MPV 9.8 fL (8.0-11.0); Monocytes % 8.7; Neutrophils % 63.1; Nucleated RBC 0 %; Platelet Count 366 10^3/uL (130-400); RBC 4.69 10^6/uL (3.93-5.22); RDW 12.9 % (11.7-14.6); RDW-SD 43.4 fL; WBC 8.53 10^3/uL (4.4-10.8)
--- NOTE | 2021-02-10 18:38 | W.ED.GENAD ---
Discharge Plan Disposition Patient Disposition: [facility] INPATIENT Condition: Serious Discharge Details Chief Complaint: Abd Prob Clinical Impression: Diverticulitis Primary Care Provider: Tayler Marshall V ED Provider: Wes Borrego Home Meds and New Rx's Prescriptions: No Action alprazolam [Xanax] 2 MG tablet 2 mg PO PRN RF: 0 acetaminophen 650 mg Tablet 650 mg PO Q4H PRNRF: 0 amoxicillin-pot clavulanate 875-125 mg tablet 1 tab PO TID RF: 0 cyclobenzaprine 10 mg Tablet 10 mg PO TID PRNRF: 0 levothyroxine 125 mcg Tablet 125 mcg PO DAILY RF: 0 methocarbamol 500 mg tablet 500 - 1,000 mg PO Q6H PRN (Reason: Back pain or spasm) Qty: 14 RF: 0 Medical Decision Making 56-year-old female who appears to be failing oral Augmentin therapy for uncomplicated diverticulitis that was diagnosed on Sunday via CT. She had a fever yesterday, presents with left lower quadrant pain and mild tachycardia. Will obtain IV access, give IV fluids, Zofran, Dilaudid for discomfort, routine laboratory values including lactate and blood cultures. We will then obtain CT imaging to be sure that there is no complication such as perforation or abscess. Patient is agreeable to this plan. Patient declined IV Dilaudid or Zofran. Laboratory values are unremarkable, CT pending. CT reveals a worsening inflammatory changes associated with acute diverticulitis. No evidence for abscess or perforation. Persistent adenopathy. The patient reports worsening diverticulitis, failing outpatient oral therapy. Given her allergies, will contact our hospitalist for admission and to discuss IV antibiotic therapy. Case discussed with Dr. Desai. We will initiate meropenem and Flagyl. I will initiate holding orders. is agreeable to admission. Medical Records Medical records reviewed: Yes I reviewed the patient's medical records. Lab Data Lab results reviewed: Yes I reviewed the patient's lab results. Labs: 02/10/21 18:20 Blood Blood Culture - Pending 02/10/21 18:09 Blood Blood Culture - Pending Laboratory Tests Range/Units 02/10/21 02/10/21 02/10/21 18:20 18:20 19:50 WBC (4.4-10.8) 10^3/uL 8.53 RBC (3.93-5.22) 10^6/uL 4.69 Hgb (11.2-15.7) g/dL 14.1 Hct (36.0-46.0) % 42.7 MCV (80-95) fL 91.0 MCH (27.0-33.0) pg 30.1 MCHC (32.0-36.0) % 33.0 RDW (11.7-14.6) % 12.9 Plt Count (130-400) 10^3/uL 366 MPV (8.0-11.0) fL 9.8 Immature Gran % 0.5 Neutrophils % 63.1 Lymphocytes % 25.4 Monocytes % 8.7 Eosinophils % 1.8 Basophils % 0.5 Nucleated RBC % % 0 Absolute Neutrophils (1.2-6.7) 10^3/uL 5.39 Absolute Lymphocytes (1.2-3.4) 10^3/uL 2.17 Absolute Monocytes (0.1-0.8) 10^3/uL 0.74 Absolute Eosinophils (0.0-0.7) 10^3/uL 0.15 Absolute Basophils (0.0-0.2) 10^3/uL 0.04 VBG Lactate (0.6-1.4) mmol/L 0.7 Sodium (136-145) mmol/L 133 L Potassium (3.5-5.1) mmol/L 3.7 Chloride (98-107) mmol/L 96 L Carbon Dioxide (21.0-32.0) mmol/L 24.0 Anion Gap (3-11) mmol/L 13.0 H BUN (7-18) mg/dL 14 Creatinine (0.55-1.02) mg/dL 0.9 Estimated GFR/1.73 m2 (mL/min/1.73m2) >= 60.00 Glucose (74-106) mg/dL 111 H Calcium (8.5-10.1) mg/dL 9.8 Total Bilirubin (0.2-1.0) mg/dL 0.3 AST (15-37) U/L 22 ALT (14-59) U/L 62 H Alkaline Phosphatase (46-116) U/L 167 H Total Protein (6.4-8.2) g/dL 8.2 Albumin (3.4-5.0) g/dL 3.4 Lipase (73-393) U/L 75 HPI General Mode of arrival: ambulatory. Date/Time Provider Initiated Documentation: 02/10/21 18:09. Limitations to Documentation: no limitations. Information obtained by: patient. HPI Narrative: This is a 56-year-old female with past medical history of anxiety, depression, hypothyroidism, who was diagnosed with uncomplicated diverticulitis on Sunday via CT. She was placed on oral Augmentin given her allergy to fluoroquinolones. Since that time she reports worsening symptoms, increased abdominal pain, nausea, fever yesterday T-max 100.7. No fever currently. She denies any headache, neck pain, chest pain, shortness of breath, back pain, vomiting, dysuria, black tarry stools or bright red blood in her stools. Does report mild loose stools. Related Data Home Medications Medication Instructions Recorded Confirmed alprazolam [Xanax] 2 mg PO PRN 05/20/14 02/10/21 cyclobenzaprine 10 mg PO TID PRN 08/20/19 02/10/21 levothyroxine 125 mcg PO DAILY 08/20/19 02/10/21 methocarbamol 500 - 1,000 mg PO Q6H PRN #14 tab 08/20/19 02/10/21 acetaminophen 650 mg PO Q4H PRN 02/10/21 02/10/21 amoxicillin-pot clavulanate 1 tab PO TID 02/10/21 02/10/21 Previous Rx's Medication Instructions Recorded methocarbamol 500 - 1,000 mg PO Q6H PRN #14 tab 08/20/19 Allergies Allergy/AdvReac Type Severity Reaction Status Date / Time ciprofloxacin HCl Allergy Severe SOB, Unverified 02/10/21 17:58 [From Cipro] TONGUE SWELLING Penicillins AdvReac Mild UPSET Unverified 02/10/21 17:58 STOMACH General Stated Complaint: Abd Prob VINICIO: 3 Review of Systems Constitutional Constitutional: Denies fatigue, Reports fever(s) and Denies headache(s) ENT Ears, Nose, Mouth, and Throat: Denies headache(s) and Denies neck pain Cardiovascular Cardiovascular: Denies chest pain and Denies dyspnea Respiratory Respiratory: Denies cough and Denies dyspnea Gastrointestinal Gastrointestinal: Reports abdominal pain, Reports loose stools, Reports nausea and Denies vomiting Genitourinary Genitourinary: Denies dysuria Musculoskeletal Musculoskeletal: Denies back pain and Denies neck pain Integumentary/Breasts Skin/Breast: Denies rash Neurologic Neurologic: Denies headache(s) Psychiatric Psychiatric: Reports anxiety Endocrine Endocrine: Denies fatigue [facility] Medical History (Updated 02/10/21 @ 20:42 by LIZY Baker) Anxiety disorder Colorectal polyps (~04/08/19) Depression Diverticulosis large intestine w/o perforation or abscess w/o bleeding (~04/08/19) Hidradenitis suppurativa Groin- treated with Humara Hypothyroidism Internal hemorrhoids Surgical History H/O hemorrhoidectomy (~04/08/19) Internal hemorrhoid banding x3 History of ear surgery Pt. states Dr. Meneses placed a titanium ear canal in Right ear, pt. states she has 10% hearing in Right ear. Removal cyst R ear 09/22 Removal nodules throat10/2012 S/P colonoscopy (~04/08/19) Social History Smoking/Tobacco Use Status: Current every day Tobacco Type: cigarettes Smoking risk assessment performed?: Yes Alcohol Intake: current Alcohol Intake frequency: a few times a month Alcohol type: hard liquor Drug use: Never Substance use type: does not use Do you feel safe at home: Yes Do you feel safe in your relationship?: Yes Additional Social history: not in current relationship Exam Const General: cooperative, healthy appearing, comfortable, no acute distress and anxious (Tearful) Orientation: alert and awake [facility] Head: normal to inspection, normocephalic and atraumatic Mouth: moist mucous membranes Eyes General: appearance normal, both eyes and all related structures Conjunctivae: conjunctivae normal Neck Neck: normal visual inspection, full ROM, trachea midline and supple Resp Effort & Inspection: normal respiratory effort and able to speak in complete sentences Auscultation: clear to auscultation bilaterally Cardio Rate: tachycardic (108) Rhythm: regular rhythm GI Inspection: normal to inspection Palpation: soft, not firm, no guarding, no pulsatile masses and tender in the LLQ; with no rebound tenderness Auscultation: normal bowel sounds Back/Spine/Pelvis Back: No back tenderness Skin General skin exam: no rashes or lesions noted Neuro General: patient alert, patient awake, moves all extremities and no focal motor deficits Cognition: normal cognition Speech: speech normal Gait: normal gait Sensory Exam: no sensory deficits noted Extrem General: full ROM and capillary refill normal Psych Appearance: grossly normal Mental Status: mental status grossly normal Course Vital Signs Vital signs: Vital Signs Pulse 114 H 02/10/21 17:54 Respiratory Rate 20 02/10/21 17:54 Blood Pressure 131/85 02/10/21 17:54 Pulse Oximetry 98 02/10/21 17:54 Pulse 114 H 02/10/21 17:54 Respiratory Rate 20 02/10/21 17:54 Respiratory Effort Non-Labored 02/10/21 18:01 Blood Pressure 131/85 02/10/21 17:54 Blood Pressure Position Standing 02/10/21 17:54 Pulse Oximetry 98 02/10/21 17:54 Oxygen Delivery Method Room Air 02/10/21 17:54 Oxygen Flow Rate 0 02/10/21 17:54 Pain Level 7 02/10/21 17:54 Lab/Test Results Lab/Test Results: 02/10/21 18:20 Blood Blood Culture - Pending 02/10/21 18:09 Blood Blood Culture - Pending Laboratory Tests Range/Units 02/10/21 18:20 WBC (4.4-10.8) 10^3/uL 8.53 RBC (3.93-5.22) 10^6/uL 4.69 Hgb (11.2-15.7) g/dL 14.1 Hct (36.0-46.0) % 42.7 MCV (80-95) fL 91.0 MCH (27.0-33.0) pg 30.1 MCHC (32.0-36.0) % 33.0 RDW (11.7-14.6) % 12.9 Plt Count (130-400) 10^3/uL 366 MPV (8.0-11.0) fL 9.8 Immature Gran % 0.5 Neutrophils % 63.1 Lymphocytes % 25.4 Monocytes % 8.7 Eosinophils % 1.8 Basophils % 0.5 Nucleated RBC % % 0 Absolute Neutrophils (1.2-6.7) 10^3/uL 5.39 Absolute Lymphocytes (1.2-3.4) 10^3/uL 2.17 Absolute Monocytes (0.1-0.8) 10^3/uL 0.74 Absolute Eosinophils (0.0-0.7) 10^3/uL 0.15 Absolute Basophils (0.0-0.2) 10^3/uL 0.04
[2021-02-10 19:00] LABS: Lactate 0.7 mmol/L (0.6-1.4)
[2021-02-10 19:06] LABS: ALT 62 U/L (14-59); AST 22 U/L (15-37); Albumin 3.4 g/dL (3.4-5.0); Alkaline Phosphatase 167 U/L (46-116); BUN 14 mg/dL (7-18); Bilirubin, Total 0.3 mg/dL (0.2-1.0); CREATININE 0.9 mg/dL (0.55-1.02); Calcium 9.8 mg/dL (8.5-10.1); Chloride 96 mmol/L (98-107); Glucose 111 mg/dL (74-106); Lipase 75 U/L (73-393); Potassium 3.7 mmol/L (3.5-5.1); Sodium 133 mmol/L (136-145); Total Protein 8.2 g/dL (6.4-8.2)
[2021-02-10] MEDS: Omnipaque 350 MG/ML 100 ML BTL IV (19:21)
[2021-02-10] MEDS: Normal Saline - Diluent 50 ML VIAL IV (19:22)
[2021-02-10] MEDS: Normal Saline Flush 10 ML SYR IVP (19:23)
--- NOTE | 2021-02-10 20:00 | DI.VRAD_ITS ---
PROCEDURE INFORMATION: Exam: CT Abdomen And Pelvis With Contrast Exam date and time: 02/10/2021 7:20 PM Age: 56 years old Clinical indication: Other: Diverticulitis, failing po abx TECHNIQUE: Imaging protocol: Computed tomography of the abdomen and pelvis with contrast. Radiation optimization: All CT scans at this facility use at least one of these dose optimization techniques: automated exposure control; mA and/or kV adjustment per patient size (includes targeted exams where dose is matched to clinical indication); or iterative reconstruction. Contrast material: [id number]; Contrast volume: 100 ml; Contrast route: INTRAVENOUS (IV); COMPARISON: CT ABDOMEN PELVIS W 02/07/2021 2:21 PM FINDINGS: Lungs: Mild right lower lobe atelectasis. Liver: Normal. No mass. Gallbladder and bile ducts: Normal. No calcified stones. No ductal dilation. Pancreas: Normal. No ductal dilation. Spleen: Normal. No splenomegaly. Adrenal glands: Normal. No mass. Kidneys and ureters: Normal. No hydronephrosis. Stomach and bowel: There is increasing soft tissue stranding in the sigmoid mesocolon particularly superiorly. No discrete fluid attenuation collection is identified. There is no evidence for extraluminal air. There appears to be increased wall thickening involving the mid sigmoid region. Appendix: No evidence of appendicitis. Intraperitoneal space: Unremarkable. No free air. No significant fluid collection. Vasculature: Moderate atherosclerotic change seen in the vasculature. Lymph nodes: Adenopathy along the inferior mesenteric artery change is again noted. Urinary bladder: Unremarkable as visualized. Reproductive: Unremarkable as visualized. Bones/joints: Unremarkable. No acute fracture. Soft tissues: Unremarkable. IMPRESSION: Worsening inflammatory changes associated with acute diverticulitis. No evidence for abscess or perforation. Adenopathy persistent. The follow-up as previously noted. Dictated and Authenticated by: Latia Jimenez MD. Ordering:BERTA Harvey MD
[2021-02-10] MEDS: metroNIDAZOLE 500 MG/100 ML BAG 100 MG IVPB (21:05)
[2021-02-10 21:36] LABS: Source Nasal/Nares
[2021-02-10 21:40] VITALS: BP 101/66; PULSE 74; RESP 17; TEMP 36.3; O2SAT 97
[2021-02-10 22:00] VITALS: BP 101/66; PULSE 74; RESP 17; TEMP 36.3; O2SAT 97
--- NOTE | 2021-02-10 22:14 | W.PM.HP.N ---
Date of service: 02/10/21 Time of Service: 22:22 Assessment and Plan Assessment and plan (1) Diverticulitis: Status: Chronic Assessment and plan: Failed outpt treatment with Augmentin. Now on Meropenem and Flagyl. Ok for oral intake as tolerated. IV NS at 80ml/hr. Dilaudid 0.5mg IV Q4H prn. Acetaminophen prn pain, fever. No elevated WBC count. Monitor temperature and clinically for improvement. (2) Hypothyroidism: Status: None Assessment and plan: Check TSH Cont replacement tx. Qualifiers: Hypothyroidism type: unspecified Qualified Code(s): E03.9 - Hypothyroidism, unspecified (3) Anxiety disorder: Status: None Assessment and plan: Cont prn alprazolam. Qualifiers: Anxiety disorder type: generalized anxiety disorder Qualified Code(s): F41.1 - Generalized anxiety disorder History of Present Illness History of Present Illness Chief Complaint: Abdominal Pain Narrative: This is a 56 yo female with a PMH of depression/anxiety, hypothyroidism. She was seen in the ED on the Sunday prior to this admission and dxd with diverticulitis. She was discharged to home on Augmentin. She endorses fevers since last Sunday. Temp of 100.7 at home on day of admission. Since the initial ED evaluation her pain and nausea have worsened. Her pain is located in the left lower quadrant. She described a loose stool on the day of admission. No melena or hematochezia. CT abd/pelvis showed worsening inflammatory changes associated with the acute diverticulitis. No abscess or perforation noted. Persistent adenopathy was present. No cough/sputum, dysuria/frequency, MOTA. She was given IV flagly and meropenem in the ED. After IV dilaudid her pain subsided considerably. Review of Systems All systems reviewed & are unremarkable except as noted in HPI and below PFSH Medical History (Updated 02/10/21 @ 22:33 by John Desai MD) Anxiety disorder Colorectal polyps (~04/08/19) Depression Diverticulosis large intestine w/o perforation or abscess w/o bleeding (~04/08/19) Hidradenitis suppurativa Groin- treated with Humara Hypothyroidism Internal hemorrhoids Surgical History H/O hemorrhoidectomy (~04/08/19) Internal hemorrhoid banding x3 History of ear surgery Pt. states Dr. Meneses placed a titanium ear canal in Right ear, pt. states she has 10% hearing in Right ear. Removal cyst R ear 09/22 Removal nodules throat10/2012 S/P colonoscopy (~04/08/19) Social History Smoking/Tobacco Use Status: Current every day Tobacco Type: cigarettes Smoking risk assessment performed?: Yes Alcohol Intake: current Alcohol Intake frequency: a few times a month Alcohol type: hard liquor Drug use: Never Substance use type: does not use Do you feel safe at home: Yes Do you feel safe in your relationship?: Yes Additional Social history: not in current relationship Meds Allergies and Home Medications Allergies Allergy/AdvReac Type Severity Reaction Status Date / Time ciprofloxacin HCl Allergy Severe SOB, Unverified 02/10/21 17:58 [From Cipro] TONGUE SWELLING Penicillins AdvReac Mild UPSET Unverified 02/10/21 17:58 STOMACH Home Medications Medication Instructions Recorded Confirmed Type alprazolam [Xanax] 2 mg PO PRN 05/20/14 02/10/21 History cyclobenzaprine 10 mg PO TID PRN 08/20/19 02/10/21 History levothyroxine 125 mcg PO DAILY 08/20/19 02/10/21 History methocarbamol 500 - 1,000 mg PO Q6H PRN #14 tab 08/20/19 02/10/21 Rx acetaminophen 650 mg PO Q4H PRN 02/10/21 02/10/21 History amoxicillin-pot clavulanate 1 tab PO TID 02/10/21 02/10/21 History Exam Const General: cooperative, no acute distress and well developed Nutritional Appearance: overweight Orientation: alert and oriented x3 HENSD Head: normocephalic and atraumatic Eyes Sclera: sclerae normal Pupils: PERRL Resp Effort & Inspection: normal respiratory effort Auscultation: clear to auscultation bilaterally Cardio Rate: regular rate Rhythm: regular rhythm Heart Sounds: S1 normal and S2 normal GI Palpation: soft and tender with no rebound tenderness Auscultation: hyperactive bowel sounds Skin General skin exam: no rashes or lesions noted Neuro General: patient alert, patient oriented x3 and no focal motor deficits Cognition: normal cognition Speech: speech normal Extrem General: no pedal edema and no calf tenderness Psych Mood: congruent mood Affect: normal affect Results Labs Result diagrams: 02/10/21 18:20 02/10/21 18:20 Labs: Laboratory Results - last 24 hr 02/10/21 02/10/21 02/10/21 18:20 18:20 19:50 WBC 8.53 RBC 4.69 Hgb 14.1 Hct 42.7 MCV 91.0 MCH 30.1 MCHC 33.0 RDW 12.9 Plt Count 366 MPV 9.8 Immature Gran % 0.5 Neutrophils % 63.1 Lymphocytes % 25.4 Monocytes % 8.7 Eosinophils % 1.8 Basophils % 0.5 Nucleated RBC % 0 Absolute Neutrophils 5.39 Absolute Lymphocytes 2.17 Absolute Monocytes 0.74 Absolute Eosinophils 0.15 Absolute Basophils 0.04 VBG Lactate 0.7 Sodium 133 L Potassium 3.7 Chloride 96 L Carbon Dioxide 24.0 Anion Gap 13.0 H BUN 14 Creatinine 0.9 Estimated GFR/1.73 m2 >= 60.00 Glucose 111 H Calcium 9.8 Total Bilirubin 0.3 AST 22 ALT 62 H Alkaline Phosphatase 167 H Total Protein 8.2 Albumin 3.4 Lipase 75 COVID-19 Source 02/10/21 21:30 WBC RBC Hgb Hct MCV MCH MCHC RDW Plt Count MPV Immature Gran % Neutrophils % Lymphocytes % Monocytes % Eosinophils % Basophils % Nucleated RBC % Absolute Neutrophils Absolute Lymphocytes Absolute Monocytes Absolute Eosinophils Absolute Basophils VBG Lactate Sodium Potassium Chloride Carbon Dioxide Anion Gap BUN Creatinine Estimated GFR/1.73 m2 Glucose Calcium Total Bilirubin AST ALT Alkaline Phosphatase Total Protein Albumin Lipase COVID-19 Source Nasal/nares Last Vital Signs Temp 36.3 C L 02/10/21 22:00 Pulse 74 02/10/21 22:00 Resp 17 02/10/21 22:00 BP 101/66 02/10/21 22:00 Pulse Ox 97 02/10/21 22:00 COVID-19 Screening Have you, or household traveled for leisure in last 14 days?: No Had IN PERSON contact w/suspected or confirmed C-19 person: No
[2021-02-10 22:26] LABS: Magnesium 1.9 mg/dL (1.8-2.4)
[2021-02-10] MEDS: Normal Saline 1,000 ML 80 ML IV (22:41)
[2021-02-10 22:52] LABS: TSH 4.29 uIU/mL (0.36-3.74)
[2021-02-10] MEDS: HYDROmorphone 2 MG/ML VIAL 0.5 MG IVP (23:09)
[2021-02-10] MEDS: Heparin 5,000 UNITS/ML VIAL 5000 UNITS SC (23:10)
[2021-02-11 00:11] LABS: COVID-19 PCR Negative (Negative)
[2021-02-11] MEDS: MEROPENEM 1 GM in Normal Saline 100 ML IVPB ×2 (00:11→08:07)
[2021-02-11] MEDS: metroNIDAZOLE 500 MG/100 ML BAG 100 MG IVPB ×4 (03:54→21:43)
[2021-02-11] MEDS: Levothyroxine 125 MCG TAB PO (05:51)
[2021-02-11 05:54] VITALS: TEMP 36.6
[2021-02-11 06:09] LABS: Bilirubin Negative (Negative); Blood Negative (Negative); Clarity Clear (Clear); Glucose Negative (Negative); Ketones Negative (Negative); Leukocyte Esterase Negative (Negative); Nitrite Negative (Negative); Urobilinogen 0.2 EU/dL (Up TO 0.2); pH 5.5 (5-8)
[2021-02-11 07:19] LABS: Abs Immature Grans 0.02 10^3/uL (0.0-0.06); Absolute Basophil Count 0.03 10^3/uL (0.0-0.2); Absolute Eosinophil Count 0.12 10^3/uL (0.0-0.7); Absolute Lymphocyte Count 1.48 10^3/uL (1.2-3.4); Absolute Neutrophil Count 3.76 10^3/uL (1.2-6.7); Basophils % 0.5; HCT 39.4 % (36.0-46.0); HGB 12.6 g/dL (11.2-15.7); Immature Grans % 0.3; MCH 29.6 pg (27.0-33.0); MCV 92.5 fL (80-95); MPV 9.7 fL (8.0-11.0); Monocytes % 8.5; Neutrophils % 63.7; Nucleated RBC 0 %; Platelet Count 347 10^3/uL (130-400); RBC 4.26 10^6/uL (3.93-5.22); RDW 12.9 % (11.7-14.6); RDW-SD 43.6 fL; WBC 5.91 10^3/uL (4.4-10.8)
[2021-02-11 07:35] LABS: ALT 45 U/L (14-59); AST 15 U/L (15-37); Albumin 2.8 g/dL (3.4-5.0); Alkaline Phosphatase 132 U/L (46-116); BUN 7 mg/dL (7-18); Bilirubin, Total 0.3 mg/dL (0.2-1.0); CREATININE 0.8 mg/dL (0.55-1.02); Calcium 8.7 mg/dL (8.5-10.1); Chloride 100 mmol/L (98-107); Glucose 97 mg/dL (74-106); Potassium 3.8 mmol/L (3.5-5.1); Sodium 126 mmol/L (136-145); Total Protein 6.8 g/dL (6.4-8.2)
[2021-02-11 07:43] VITALS: BP 102/68; PULSE 69; RESP 18; TEMP 36.5; O2SAT 97
[2021-02-11] MEDS: Heparin 5,000 UNITS/ML VIAL 5000 UNITS SC ×3 (08:07→23:35)
--- NOTE | 2021-02-11 09:53 | INITIAL_ITS ---
- If Service Date Differs Date of service: 02/11/21 Time of Service: 09:53 Care Management Initial Assess REASON FOR HOSPITALIZATION:: Diverticulitis PAST MEDICAL HISTORY/PAST SURGICAL HISTORY:: Anxiety disorder. Colorectal polyps (~04/08/19). Depression. Diverticulosis large intestine w/o perforation or abscess w/o bleeding (~04/08/19). Hidradenitis suppurativa. Groin- treated with Humara. Hypothyroidism. Internal hemorrhoids. H/O hemorrhoidectomy (~04/08/19). Internal hemorrhoid banding x3. History of ear surgery. Pt. states Dr. Meneses placed a titanium ear canal in Right ear, pt. states she has 10% hearing in Right ear. Removal cyst R ear 09/22. Removal nodules throat10/2012. S/P colonoscopy (~04/08/19). Current everyday smoker. PREVIOUS FUNCTIONAL STATUS/SOCIAL/FAMILY SUPPORTS:: Resides in [facility], [facility], employed at [employer]. SonStephon resides with her. Independent at baseline in the community. CURRENT FUNCTIONAL STATUS:: Per provider, clinically improving; pain managed no nausea or vomiting, eating. Jazmine asked to nap this afternoon; CM did not wake her and continues to follow. ADVANCE DIRECTIVES:: None on file at [facility]. Has patient been provided with info about the portal/API?: Yes Did the patient sign up for the portal?: No CODE STATUS:: Full Code INSURANCE COVERAGE / FINANCIAL ISSUES:: BC/BS CURRENT HOME/COMMUNITY SERVICES/EQUIPMENT:: None, currently. PRIMARY CARE PHYSICIAN:: Tayler Marshall POTENTIAL DISCHARGE NEEDS:: Follow up appointments. PATIENT/FAMILY EDUCATION NEEDS:: Review discharge instructions, discuss Ask Me Three. ANTICIPATED BARRIERS TO DISCHARGE:: None identified. TRANSPORTATION:: Via private vehicle with her sonStephon. PLAN:: Jazmine will return home when ready per MD. She will follow up with her PCP and plan of care as prescribed. She will transport via private vehicle with her sonStephon.
[2021-02-11] MEDS: Polyethylene Glycol 3350 17 GM PACKET PO (10:29)
[2021-02-11] MEDS: Normal Saline Flush 10 ML SYR IVP (10:29)
[2021-02-11] MEDS: HYDROmorphone 2 MG/ML VIAL 0.5 MG IVP ×2 (10:29→21:42)
[2021-02-11 10:43] LABS: FREE T4 1.06 ng/dL (0.76-1.46)
[2021-02-11] MEDS: cefTRIAXone 2 GM/50 ML BAG IVPB (11:42)
--- NOTE | 2021-02-11 12:02 | W.PM.PROGNOT ---
Date of Service Date of service: 02/11/21 Time of Service: 12:03 Assessment and Plan Assessment and plan (1) Diverticulitis: Start date: 02/11/21 Start time: 12:07 Status: Chronic Assessment and plan: Failed outpt treatment with Augmentin. She was placed on ceftriaxone in addition to flagyl, meropenem dcd. Ok for oral intake as tolerated. IV NS at 80ml/hr. Dilaudid 0.5mg IV Q4H prn Will also add oral analgesic for pain over IV as she is able to tolerate a diet. Acetaminophen prn pain, fever. No elevated WBC count. Monitor temperature and clinically for improvement. (2) Hypothyroidism: Start date: 02/11/21 Start time: 12:19 Status: None Assessment and plan: Check TSH, high but free t4 normal Cont replacement tx. Qualifiers: Hypothyroidism type: unspecified Qualified Code(s): E03.9 - Hypothyroidism, unspecified (3) Anxiety disorder: Start date: 02/11/21 Start time: 12:19 Status: Chronic Assessment and plan: Cont prn alprazolam. Qualifiers: Anxiety disorder type: generalized anxiety disorder Qualified Code(s): F41.1 - Generalized anxiety disorder (4) Discharge planning issues: Start date: 02/11/21 Start time: 12:21 Status: Acute Assessment and plan: home on discharge (5) DVT prophylaxis: Start date: 02/11/21 Start time: 12:21 Status: Acute Assessment and plan: heparin subct Subjective Subjective Interval history since last seen: Patient states she is good she is on pain killers, she is going to have lunch and eat then going to nap. She has been afebrile since admission. No n/v. Tolerating diet. Exam Const General: cooperative, no acute distress and well developed Nutritional Appearance: overweight Orientation: alert and oriented x3 [facility] Head: normocephalic and atraumatic Eyes Sclera: sclerae normal Pupils: PERRL Resp Effort & Inspection: normal respiratory effort Auscultation: clear to auscultation bilaterally Cardio Rate: regular rate Rhythm: regular rhythm Heart Sounds: S1 normal and S2 normal GI Palpation: soft and tender in the LLQ and in the RLQ Auscultation: hyperactive bowel sounds Skin General skin exam: no rashes or lesions noted Neuro General: patient alert, patient oriented x3 and no focal motor deficits Cognition: normal cognition Speech: speech normal Extrem General: no pedal edema and no calf tenderness Psych Mood: congruent mood Affect: normal affect Objective Last Vital Signs Temp 36.5 C 02/11/21 07:43 Pulse 69 02/11/21 07:43 Resp 18 02/11/21 07:43 BP 102/68 02/11/21 07:43 Pulse Ox 97 02/11/21 07:43 Laboratory Results - last 24 hr 02/10/21 02/10/21 02/10/21 18:20 18:20 18:20 WBC 8.53 RBC 4.69 Hgb 14.1 Hct 42.7 MCV 91.0 MCH 30.1 MCHC 33.0 RDW 12.9 Plt Count 366 MPV 9.8 Immature Gran % 0.5 Neutrophils % 63.1 Lymphocytes % 25.4 Monocytes % 8.7 Eosinophils % 1.8 Basophils % 0.5 Nucleated RBC % 0 Absolute Neutrophils 5.39 Absolute Lymphocytes 2.17 Absolute Monocytes 0.74 Absolute Eosinophils 0.15 Absolute Basophils 0.04 VBG Lactate Sodium 133 L Potassium 3.7 Chloride 96 L Carbon Dioxide 24.0 Anion Gap 13.0 H BUN 14 Creatinine 0.9 Estimated GFR/1.73 m2 >= 60.00 Glucose 111 H Calcium 9.8 Magnesium 1.9 Total Bilirubin 0.3 AST 22 ALT 62 H Alkaline Phosphatase 167 H Total Protein 8.2 Albumin 3.4 Lipase 75 TSH Free T4 Urine Color Urine Clarity Urine pH Ur Specific [place] Urine Protein Urine Ketones Urine Blood Urine Nitrite Urine Bilirubin Urine Urobilinogen Ur Leukocyte Esterase Urine Glucose COVID-19 Source SARS-CoV-2 (PCR) 02/10/21 02/10/21 02/10/21 18:20 19:50 21:30 WBC RBC Hgb Hct MCV MCH MCHC RDW Plt Count MPV Immature Gran % Neutrophils % Lymphocytes % Monocytes % Eosinophils % Basophils % Nucleated RBC % Absolute Neutrophils Absolute Lymphocytes Absolute Monocytes Absolute Eosinophils Absolute Basophils VBG Lactate 0.7 Sodium Potassium Chloride Carbon Dioxide Anion Gap BUN Creatinine Estimated GFR/1.73 m2 Glucose Calcium Magnesium Total Bilirubin AST ALT Alkaline Phosphatase Total Protein Albumin Lipase TSH 4.29 H Free T4 Urine Color Urine Clarity Urine pH Ur Specific [place] Urine Protein Urine Ketones Urine Blood Urine Nitrite Urine Bilirubin Urine Urobilinogen Ur Leukocyte Esterase Urine Glucose COVID-19 Source Nasal/nares SARS-CoV-2 (PCR) Negative 02/11/21 02/11/21 02/11/21 06:00 06:52 06:52 WBC 5.91 D RBC 4.26 Hgb 12.6 Hct 39.4 MCV 92.5 MCH 29.6 MCHC 32.0 RDW 12.9 Plt Count 347 MPV 9.7 Immature Gran % 0.3 Neutrophils % 63.7 Lymphocytes % 25.0 Monocytes % 8.5 Eosinophils % 2.0 Basophils % 0.5 Nucleated RBC % 0 Absolute Neutrophils 3.76 Absolute Lymphocytes 1.48 Absolute Monocytes 0.50 Absolute Eosinophils 0.12 Absolute Basophils 0.03 VBG Lactate Sodium 126 L Potassium 3.8 Chloride 100 Carbon Dioxide 24.0 Anion Gap 2.0 L BUN 7 Creatinine 0.8 Estimated GFR/1.73 m2 >= 60.00 Glucose 97 Calcium 8.7 Magnesium Total Bilirubin 0.3 AST 15 ALT 45 Alkaline Phosphatase 132 H Total Protein 6.8 Albumin 2.8 L Lipase TSH Free T4 1.06 Urine Color Yellow Urine Clarity Clear Urine pH 5.5 Ur Specific [place] 1.010 Urine Protein Negative Urine Ketones Negative Urine Blood Negative Urine Nitrite Negative Urine Bilirubin Negative Urine Urobilinogen 0.2 Ur Leukocyte Esterase Negative Urine Glucose Negative COVID-19 Source SARS-CoV-2 (PCR)
[2021-02-11] MEDS: Normal Saline 1,000 ML 80 ML IV (14:25)
[2021-02-11 16:23] VITALS: BP 104/69; PULSE 68; RESP 18; TEMP 37.3; O2SAT 96
--- NOTE | 2021-02-11 16:27 | PHA.REVIEW ---
Pharmacy Admission Review - Admission Clinical Review (Last Updated 02/11/21 @ 12:20 by Nika Webster NP) DVT prophylaxis (Acute) Discharge planning issues (Acute) ciprofloxacin HCl [From Cipro] Allergy (Severe, Unverified 02/11/21 12:02) Anapylaxis Penicillins Adverse Reaction (Mild, Unverified 02/10/21 17:58) UPSET STOMACH Height 5 ft 7 in Weight 86.183 kg - Renal Dosing Renal Dosing: BUN 7 mg/dL (7-18) 02/11/21 06:52 Creatinine 0.8 mg/dL (0.55-1.02) 02/11/21 06:52 Medications needing adjustments: Reviewed List of meds needing interventions: eCrCl 77.26 ml/min - meds ok - Anticoagulation Anticoagulation: Hgb 12.6 g/dL (11.2-15.7) 02/11/21 06:52 Hct 39.4 % (36.0-46.0) 02/11/21 06:52 Plt Count 347 10^3/uL (130-400) 02/11/21 06:52 Creatinine 0.8 mg/dL (0.55-1.02) 02/11/21 06:52 DVT Prohphylaxis: Reviewed Medications: Heparin - Opiate Usage Evaluate Pain Scale/Pains Meds: Reviewed (dilaudid 0.5 iv q6h prn, tapentadol) Scheduled Bowel Reg ordered if on Opiates?: Yes (prn orders) - Relevant Labs Sodium 126 mmol/L (136-145) L 02/11/21 06:52 Potassium 3.8 mmol/L (3.5-5.1) 02/11/21 06:52 Chloride 100 mmol/L (98-107) 02/11/21 06:52 Magnesium 1.9 mg/dL (1.8-2.4) 02/10/21 18:20 Electrolytes, C-Reactive P, ESR: Reviewed - DM Control DM Control: Glucose 97 mg/dL (74-106) 02/11/21 06:52 Insulin Dosing: N/A - Heart Failure/CO EF%, NICKI's, B-Blockers, Diuretics: N/A - BP Control BP Control: Blood Pressure 104/69 Blood Pressure 102/68 If elevated: Reviewed - Qtc Review If Elevated: N/A - IV to PO Switch IV Medications: Reviewed - Home Meds Relevent Home Meds Not ordered & why?: all ordered, adjusted alprazolam dose and flexeril dose - Comments Comments/Follow Ups: ceftriaxone plus metronidazole IV for diverticulitis, po/iv pain control with dilaudid and nucynta
[2021-02-11 23:17] VITALS: BP 107/70; PULSE 68; RESP 17; TEMP 37.2; O2SAT 98
[2021-02-12] MEDS: metroNIDAZOLE 500 MG/100 ML BAG 100 MG IVPB ×2 (03:35→11:07)
[2021-02-12] MEDS: Levothyroxine 125 MCG TAB PO (05:39)
[2021-02-12] MEDS: Normal Saline 1,000 ML 80 ML IV (05:40)
[2021-02-12 06:53] LABS: Abs Immature Grans 0.01 10^3/uL (0.0-0.06); Absolute Basophil Count 0.03 10^3/uL (0.0-0.2); Absolute Eosinophil Count 0.09 10^3/uL (0.0-0.7); Absolute Lymphocyte Count 1.66 10^3/uL (1.2-3.4); Absolute Monocyte Count 0.51 10^3/uL (0.1-0.8); Absolute Neutrophil Count 2.37 10^3/uL (1.2-6.7); Basophils % 0.6; Eosinophils % 1.9; HCT 38.1 % (36.0-46.0); HGB 12.2 g/dL (11.2-15.7); Immature Grans % 0.2; Lymphocytes % 35.5; MCH 29.9 pg (27.0-33.0); MCV 93.4 fL (80-95); MPV 9.7 fL (8.0-11.0); Monocytes % 10.9; Neutrophils % 50.9; Nucleated RBC 0 %; Platelet Count 346 10^3/uL (130-400); RBC 4.08 10^6/uL (3.93-5.22); RDW 13.1 % (11.7-14.6); RDW-SD 44.9 fL; WBC 4.67 10^3/uL (4.4-10.8)
[2021-02-12 07:06] LABS: Anion Gap 7.9 mmol/L (3-11); BUN 9 mg/dL (7-18); CO2 27.1 mmol/L (21.0-32.0); CREATININE 0.8 mg/dL (0.55-1.02); Chloride 105 mmol/L (98-107); Glucose 97 mg/dL (74-106); Potassium 4.2 mmol/L (3.5-5.1)
[2021-02-12 07:28] LABS: Sodium 140 mmol/L (136-145)
[2021-02-12] MEDS: Heparin 5,000 UNITS/ML VIAL 5000 UNITS SC (08:10)
[2021-02-12] MEDS: Fluticasone NASAL SPRAY 16 GM BTL NS (08:43)
[2021-02-12 09:12] VITALS: BP 102/69; PULSE 77; RESP 20; TEMP 36.5; O2SAT 96
[2021-02-12] MEDS: cefTRIAXone 2 GM/50 ML BAG IVPB (10:14)
[2021-02-12] MEDS: Normal Saline Flush 10 ML SYR IVP (10:16)
--- NOTE | 2021-02-12 11:05 | W.PM.DS.N ---
Date of service: 02/12/21 Time of Service: 11:06 DS: Diagnosis Discharge Diagnosis (1) Diverticulitis: Status: Chronic (2) Hypothyroidism: Status: None (3) Anxiety disorder: Status: Chronic (4) Discharge planning issues: Status: Acute (5) DVT prophylaxis: Status: Acute Discharge Plan Disposition Patient Disposition: HOME Condition: Good Discharge Details Reason For Visit: DIVERTICULITIS Admit Date/Time: 02/10/21 20:19 Admit Provider: John Desai Attending Provider: John Desai Primary Care Provider: Tayler Marshall V Hospital Course Hospital Course: This is a 56 yo female with a PMH of depression/anxiety, hypothyroidism. She was seen in the ED on the Sunday prior to this admission and dxd with diverticulitis. She was discharged to home on Augmentin. She endorses fevers since last Sunday. Temp of 100.7 at home on day of admission. Since the initial ED evaluation her pain and nausea have worsened. Her pain is located in the left lower quadrant. She described a loose stool on the day of admission. No melena or hematochezia. CT abd/pelvis showed worsening inflammatory changes associated with the acute diverticulitis. No abscess or perforation noted. Persistent adenopathy was present. No cough/sputum, dysuria/frequency, MOTA. She was given IV flagly and meropenem in the ED. After IV dilaudid her pain subsided considerably. Her meropenem was stopped and Ropcephin was initiated. She continued on Flagyl She had no further fevers and her abd pain improved significantly. On the day of d/c she required to pain medications. She had a BM and was tolerating oral intake. She was d/c on oral Flagyl 500mg TID for 7 days and cefpodoxime 200mg po BID for 7 days. PCP follow up in 1 week Home Meds and New Rx's Prescriptions: New fluticasone propionate 50 mcg/actuation [place],Suspension 0 g NS DAILY Qty: 0 RF: 0 metronidazole 500 mg tablet 500 mg PO TID Qty: 21 RF: 0 cefpodoxime 200 mg tablet 200 mg PO BID Qty: 14 RF: 0 Continued acetaminophen 650 mg Tablet 650 mg PO Q4H PRNRF: 0 alprazolam 0.25 mg tablet 0.25 mg PO Q6H PRNRF: 0 cyclobenzaprine 10 mg Tablet 10 mg PO HS PRNRF: 0 levothyroxine 125 mcg Tablet 125 mcg PO DAILY RF: 0 Discontinued amoxicillin-pot clavulanate 875-125 mg tablet 1 tab PO TID RF: 0 Discharge Instructions Instructions: Diverticulitis (GEN), Diverticulitis Diet (GEN) Stand Alone Forms: Nursing Discharge Form Referrals: Tayler Marshall MD [Primary Care Provider] - (Please call Sunday to make a follow up for 1 week.) Activity:: Activity as Tolerated Equipment/Supplies:: No Equipment Needed Diet:: As Tolerated Discharge Orders Discharge Orders: Discharge Order (Routine); Ordered 02/12/21 Ordered By: John Desai Discharge Data Discharge Date/Time-TO BE ENTERED AT DEPARTURE: 02/12/21 12:34 DS: Summary Time Spent with Patient providing and/or coordinating discharge services: Greater than 30 minutes Status at Discharge Functional status at discharge: independent ambulation Overall status at discharge: patient is progressing back to baseline Mental Status: mental status grossly normal Speech and Movement: speech and movement normal Mood: congruent mood Affect: normal affect Exam Psych Mental Status: mental status grossly normal Speech and Movement: speech and movement normal Mood: congruent mood Affect: normal affect DS: Data Vitals/I&O Vitals and I&O: Vital Signs Temperature 36.5 C 02/12/21 09:12 Temperature Source Temporal Artery Scan 02/11/21 23:17 Pulse 77 02/12/21 09:12 Pulse Rhythm Regular 02/12/21 08:26 Respiratory Rate 20 02/12/21 09:12 Respiratory Effort Non-Labored 02/12/21 08:26 Respiratory Depth Normal 02/12/21 08:26 Respiratory Pattern Normal 02/12/21 08:26 Blood Pressure 102/69 02/12/21 09:12 Blood Pressure Position Standing 02/10/21 17:54 Pulse Oximetry 96 02/12/21 09:12 Oxygen Delivery Method Room Air 02/12/21 09:12 Oxygen Flow Rate 0 02/12/21 09:12 Pain Level 0 02/12/21 09:12 Intake & Output 02/11/21 02/11/21 02/12/21 11:59 23:59 11:59 Intake Total 1760 / 2490 730 / 2490 1800 / 1800 Output Total 600 / 600 Balance 1760 / 1890 130 / 1890 1800 / 1800 Intake: IV 1400 / 1650 250 / 1650 1000 / 1000 Oral 360 / 840 480 / 840 800 / 800 Output: Urine 600 / 600 Other: Urine Color Yellow Urine Appearance Clear Clear Clear Comment per pt report independent to toilet. Stool Size Moderate Stool Characteristics Soft Formed Voiding Methods Toilet Toilet Data Completed and Pending Labs on day of discharge: Labs from last 24 hours 02/12/21 02/12/21 06:32 06:32 WBC 4.67 RBC 4.08 Hgb 12.2 Hct 38.1 MCV 93.4 MCH 29.9 MCHC 32.0 RDW 13.1 Plt Count 346 MPV 9.7 Immature Gran % 0.2 Neutrophils % 50.9 Lymphocytes % 35.5 Monocytes % 10.9 Eosinophils % 1.9 Basophils % 0.6 Nucleated RBC % 0 Absolute Neutrophils 2.37 Absolute Lymphocytes 1.66 Absolute Monocytes 0.51 Absolute Eosinophils 0.09 Absolute Basophils 0.03 Sodium 140 D Potassium 4.2 Chloride 105 Carbon Dioxide 27.1 Anion Gap 7.9 BUN 9 Creatinine 0.8 Estimated GFR/1.73 m2 >= 60.00 Glucose 97 Calcium 9.0 Preliminary micro results at discharge 02/10/21 21:06 Blood Culture - Preliminary Blood NO GROWTH 24 HOURS 02/10/21 18:20 Blood Culture - Preliminary Blood NO GROWTH 24 HOURS [facility] Medical History Anxiety disorder Colorectal polyps (~04/08/19) Depression Diverticulosis large intestine w/o perforation or abscess w/o bleeding (~04/08/19) Hidradenitis suppurativa Groin- treated with Humara Hypothyroidism Internal hemorrhoids Surgical History H/O hemorrhoidectomy (~04/08/19) Internal hemorrhoid banding x3 History of ear surgery Pt. states Dr. Meneses placed a titanium ear canal in Right ear, pt. states she has 10% hearing in Right ear. Removal cyst R ear 09/22 Removal nodules throat10/2012 S/P colonoscopy (~04/08/19) Social History Smoking/Tobacco Use Status: Current every day Tobacco Type: cigarettes Smoking risk assessment performed?: Yes Alcohol Intake: current Alcohol Intake frequency: a few times a month Alcohol type: hard liquor Drug use: Never Substance use type: does not use Do you feel safe at home: Yes Do you feel safe in your relationship?: Yes Additional Social history: not in current relationship
--- NOTE | 2021-02-12 14:18 | PDOC.CMDIS ---
LACE Index Scoring Tool - Questions: Length of Stay (in days): 2 Acuity (Admit via E.D.?): Yes E.D. Visits: 1 - Answers: Total Score: 6 Risk of Readmission: Low Risk Care Management Discharge Reason for Hospitalization: Diverticulitis Discharge Plan: Jazmine will return home when ready per MD. She will follow up with her PCP and plan of care as prescribed. She will transport via private vehicle with her son, Stephon. Patient/Family Education Needs: Review discharge instructions, discuss Ask Me Three.
== END 2021-02-12 12:34 | disposition home or self-care (01) | DRG 392 ==
LOC: ER 21:23 → MS 21:40
PROVIDERS: Nurse Practitioner Family; Admitting Provider Family Medicine; Emergency Provider Physician Assistant; PCP Family Medicine; Visit Provider Family Medicine
DX: K57.32 Diverticulitis of large intestine without perforation or abscess without bleeding (principal); F41.1 Generalized anxiety disorder; F32.9 Major depressive disorder, single episode, unspecified; K64.8 Other hemorrhoids; E03.9 Hypothyroidism, unspecified; F17.210 Nicotine dependence, cigarettes, uncomplicated; L73.2 Hidradenitis suppurativa; Z86.010 Personal history of colon polyps
CPT/HCPCS: 36415; 80048; 80053; 83690; 87040; 87635; 96361; 96365; 99285; 74177; 81003; 83605; 83735; 84439; 84443; 85025; 99223; 99232; 99239; J1644; J3490

== ENCOUNTER 2021-04-21 15:46 | Outpatient (REF) | payer BC, SELFPAY ==
--- NOTE | 2021-04-21 13:30 | PAPFT_PTH ---
PATIENT: Jazmine Souza LOC: [facility]#:[id number] AGE/SX: 56/F ROOM: RE04/21/[address]: Tayler Marshall V : 1965 BED: DIS: 04/21/2021 SPEC #: [id number] RECD: 04/22/21 10:33 STATUS: MUMTAZ REWhitney #: [id number] CARMEN: 04/21/21 13:[address]: Tayler Marshall V DEPT: [facility] Cytology RECD BY: Jia Pruitt Tissues: 1 - CX/ENDOCX FOR PAP SMEARS Procedures: PAP THIN PREP/UVM Screening HPV DNA PROBE Comments: [id number]
== END 2021-04-21 15:47 | disposition home or self-care (01) ==
LOC: NCHCN 15:46
PROVIDERS: PCP Family Medicine; Visit Provider Family Medicine
DX: Z12.4 Encounter for screening for malignant neoplasm of cervix (principal); Z01.419 Encounter for gynecological examination (general) (routine) without abnormal findings; Z11.51 Encounter for screening for human papillomavirus (HPV)
CPT/HCPCS: 88142; 87624

== ENCOUNTER 2021-06-21 01:23 | Outpatient (CLI) | payer BC, SELFPAY ==
--- NOTE | 2021-06-21 | DI.US_ITS ---
Exam(s) US THYROID EXAM: US THYROID CLINICAL HISTORY: THYROID NODULE,E04.1. TECHNIQUE: Ultrasound thyroid performed using standard protocol. COMPARISON: US THYROID ULTRASOUND from 08/03/2010 US THYROID ULTRASOUND from 08/03/2010 FINDINGS: ISTHMUS: 2.5 mm RIGHT LOBE: Size: 2.8 x 1.2 x 1.3 cm atrophic. A heterogeneous appearance. 5 millimeter circumscribed hypoecho ic nodule. No suspicious masses. Nodules: None. LEFT LOBE: Severely atrophic. Not clearly visible. No nodule seen. OTHER FINDINGS: None. IMPRESSION: Bilateral thyroid atrophy. The left lobe is not clearly visible. small right colloid nodule. DATA REPOSITORY:
--- NOTE | 2021-06-21 | DI.MAMMO_ITS ---
Exam(s) MAMMO SCREENING EXAM: MAMMO SCREENING CLINICAL HISTORY: SCREENING, [facility],Z00.00 TECHNIQUE: Mammograms were interpreted according to the usual protocol including computer analysis w [employer] CAD system, tomosynthesis and C-view imaging. COMPARISON: 2011 through 2016 FINDINGS: The breasts are composed of scattered fibroglandular densities, Breast Density category B. No suspicious masses or suspicious microcalcifications are seen. No skin thickening or abnormal axillary lymph nodes are seen. There has been no significant change from prior exams. IMPRESSION: BI-RADS Category 1, Negative mammogram Yearly screening mammography is recommended. Breast Density - Category B, scattered fibroglandular densities. A negative radiographic report should not delay biopsy if a dominant or clinically suspicious mass is present. Up to ten percent of cancers are not identified on mammography. A negative report may reinforce clinical impression. Adenosis and dense breasts may obscure an underlying neoplasm. False positive reports average 6 to 10%. Patient will receive a letter notifying them of these results.
== END 2021-06-21 01:43 ==
PROVIDERS: PCP Family Medicine; Visit Provider Family Medicine
DX: E04.1 Nontoxic single thyroid nodule (principal); F17.200 Nicotine dependence, unspecified, uncomplicated; E78.5 Hyperlipidemia, unspecified; E03.9 Hypothyroidism, unspecified; R10.31 Right lower quadrant pain; M25.551 Pain in right hip; K57.92 Diverticulitis of intestine, part unspecified, without perforation or abscess without bleeding; Z00.00 Encounter for general adult medical examination without abnormal findings; E03.4 Atrophy of thyroid (acquired); Z12.31 Encounter for screening mammogram for malignant neoplasm of breast
CPT/HCPCS: 77063; 77067; 76536

== ENCOUNTER 2021-08-29 03:01 | Outpatient (CLI) | payer BC, SELFPAY ==
[2021-08-29 10:36] LABS: Source Nasal/Nares
[2021-08-30 09:40] LABS: COVID-19 PCR Negative (Negative)
== END 2021-08-29 03:02 | disposition home or self-care (01) ==
PROVIDERS: PCP Family Medicine; Visit Provider Otolaryngology Otology & Neurotology
DX: Z20.822 Contact with and (suspected) exposure to COVID-19 (principal); Z01.818 Encounter for other preprocedural examination
CPT/HCPCS: 87635

== ENCOUNTER 2022-02-21 22:40 | Outpatient (REF) | payer BC, SELFPAY ==
--- OUTSIDE RECORDS SUMMARY | 2022-02-21 22:43 | XMS_ITS ---
:1965 Author Care Team Providers Name Role Phone IFONA FISHER Primary Care Provider [phone] [facility] OTHER [phone] Allergies Code Code System Name Reaction Severity Status Onset 774828 RxNorm Chantix ? ? Active ? 846111 RxNorm Cipro ? ? Active ? 405 RxNorm Erythromycin Base ? ? Active ? Medications Name Status Start Date Stop Date ? ? alprazolam 0.25 mg tablet Active ? Not av ailable Take 1 tablet twice a day by oral route. B Complex-Vitamin B12 Active ? Not availa ble 1 tab daily cefpodoxime 200 mg tablet Active ? Not av ailable Take 1 tablet every 12 hours by oral route. cyclobenzaprine 10 mg tablet Active ? Not available Take 1 tablet every day by oral route in the evening. fluticasone propionate 50 mcg/actuation blister powder for inhal ation Active ? Not available Inhale 2 puffs twice a day by inhalation route. levothyroxine 125 mcg tablet Active ? Not available Take 1 tablet every day by oral route. metronidazole 500 mg tablet Active ? Not available Take 1 tablet every 8 hours by oral route. ofloxacin 0.3 % ear drops Active ? Not av ailable INSTILL 10 DROPS INTO AFFECTED EAR(S) BY OTIC ROUTE ONCE DAILY Percocet 5 mg-325 mg tablet Active ? Not available Take 1 tablet every 6 hours by oral route. valacyclovir 1 gram tablet Active ? Not a vailable Take 1 tablet every 12 hours by oral route. Wellbutrin SR 150 mg tablet, 12 hr sustained-release Active ? Not available Take 1 tablet twice a day by oral route. Wellbutrin XL 300 mg 24 hr tablet, extended release Active ? Not available Take 1 tablet every day by oral route. Zyrtec 10 mg tablet Active ? Not availabl e Take 1 tablet every day by oral route. Problems Name Status Onset Date Source ? Thyroid Nodule Active 09/26/2021 ? Hypothyroidism Active 09/26/2021 ? Hyperlipidemia Active 09/26/2021 ? Tobacco User Active 09/26/2021 ? Depressive Disorder Active 09/26/2021 ? Acute Otitis Media Active 09/26/2021 ? Cholesteatoma of Attic Active 09/26/2021 ? Gastroesophageal Reflux Disease Active 09/26/2021 ? Diverticulitis Active 09/26/2021 ? Hidradenitis Suppurativa Active 09/26/2021 ? Fever Active 09/26/2021 ? Snoring Active 09/26/2021 ? Abdominal Pain Active 09/26/2021 ? Inguinal Pain Active 09/26/2021 ? Insect Bite - Wound Active 09/26/2021 ? History of Adenomatous Polyp of Colon Active 09/26/2021 ? Normal Grief Reaction Active 09/26/2021 ? History of Herpes Zoster Active 09/26/2021 ? Pain in Right Hip Joint Active 09/26/2021 ? Finding of Sensation of Musculoskeletal Active 09/26/20 ? Structure of Neck Procedures None recorded. Results Lab Results None recorded. Past Encounters 10/31/2021 Snoring; Health Education Given; Chronic Pain; Panic Disorder; Tobacco Dependence Syndrome Jonna Roman MD, Board Certified Sleep Ph ysician: [address] [place] [address] [address], [place] [address], Ph. Social History Tobacco Smoking Status Heavy Tobacco Smoker (1 pack per day) Vaccine List None recorded. Plan of Care Patient Instructions We discussed signs and symptoms you are exhibiting that may be due to Obstructive Sleep Apnea or other sleep disorders. We went over sleep conditions that I suspect you may have that will benefit from further evaluation. The next step is to diagnose your sleep disorder through sleep study testing. We will get permission from your insuran ce to do the sleep study. Call us back in 2 to 3 weeks if you do not get a call from us about scheduling your sleep study. Bring all your home medications to the sleep study including any sleep aids. Please call [facility] if you ar e not able to make it to your sleep study IF Your sleep study shows Obstructive Sl eep Apnea, you want to proceed with CPAP/BIPAP therapy. We discussed process of initiating thera py, commonly encountered problems and ways to get help and troubleshoot them. If at time of my review of your sleep st udy, you qualify for cpap treatment, I will send script for new machine to the following Durable Medical Equipment Provider. The wait for new machine due to national shortage is about 2 months. [x ] [facility] - out of state branch but therapist will travel to your home They will make an appointment for you to director group sales the machine and show you how to put on the mask and operate the machine. Making the effort to use your machine ev live time you sleep is very important, especially as you get used to therapy. Please call them if you have any questions on how to use machine or use your mask. Ca ll them if your mask is not fitting righ t and need to be fitted with a new one. This is important to do as early as possible. Please call Sleep Clinic if you have any other concerns or problems before your next appointment. Remember to bring your entire PAP account supervisor including mask, hose, and plug to your future appointme nts. This allows me to provide you with the best patient care and address any of your questions/concerns on therapy. Reminders Provider Appointments None recorded. ? ? Lab None recorded. ? ? Referral None recorded. ? ? Procedures None recorded. ? ? Surgeries None recorded. ? ? Imaging None recorded. ? ? Vitals Height Weight BMI 170.18 cm 83.91 kg 29 kg/m2
[2022-02-23 11:52] LABS: COVID-19 RT-PCR UVMMC Result Negative (Negative)
== END 2022-02-21 22:41 | disposition home or self-care (01) ==
LOC: NCHCN 22:40
PROVIDERS: PCP Family Medicine; Visit Provider Family Medicine
DX: Z20.822 Contact with and (suspected) exposure to COVID-19 (principal); J06.9 Acute upper respiratory infection, unspecified
CPT/HCPCS: U0003

== ENCOUNTER 2022-06-09 18:43 | Outpatient (REF) | payer BC, SELFPAY ==
[2022-06-09 16:50] LABS: ALT 24 U/L (14-59); AST 17 U/L (15-37); Albumin 3.3 g/dL (3.4-5.0); Alkaline Phosphatase 83 U/L (46-116); Anion Gap 7.1 mmol/L (3-11); BUN 13 mg/dL (7-18); Bilirubin, Total 0.2 mg/dL (0.2-1.0); C-Reactive Protein 1.05 mg/dL (0.0-0.3); CO2 26.9 mmol/L (21.0-32.0); CREATININE 0.8 mg/dL (0.55-1.02); Chloride 105 mmol/L (98-107); Glucose 93 mg/dL (74-106); Sodium 139 mmol/L (136-145); TSH (W/Ref FT4) 0.06 uIU/mL (0.36-3.74); Total Protein 7.3 g/dL (6.4-8.2)
[2022-06-09 17:47] LABS: FREE T4 1.43 ng/dL (0.76-1.46)
[2022-06-09 18:09] LABS: Abs Immature Grans 0.02 10^3/uL (0.0-0.06); Absolute Basophil Count 0.04 10^3/uL (0.0-0.2); Absolute Eosinophil Count 0.14 10^3/uL (0.0-0.7); Absolute Lymphocyte Count 2.06 10^3/uL (1.2-3.4); Absolute Monocyte Count 0.53 10^3/uL (0.1-0.8); Basophils % 0.6; Eosinophils % 2.1; HCT 42.8 % (36.0-46.0); HGB 13.7 g/dL (11.2-15.7); Immature Grans % 0.3; Lymphocytes % 30.3; MCH 29.9 pg (27.0-33.0); MCV 93 fL (80-95); Monocytes % 7.8; Neutrophils % 58.9; Platelet Count 329 10^3/uL (130-400); RBC 4.58 10^6/uL (3.93-5.22); RDW 12.3 % (11.7-14.6); RDW-SD 42.7 fL; WBC 6.79 10^3/uL (4.4-10.8)
[2022-06-09 18:23] LABS: ESR 33 mm/hr (0-30)
[2022-06-11 16:28] LABS: Rheumatoid Factor <8.6 IU/mL (<12.0)
[2022-06-12 10:05] LABS: Lyme Ab w Rflx to Lyme Confirm Negative (Negative)
[2022-06-12 10:48] LABS: Hepatitis C Ab w Rflx HCV PCR Negative (Negative)
[2022-06-12 11:01] LABS: HIV-1/2 Ag & Ab Screen Negative (Negative)
[2022-06-12 12:53] LABS: ANA Interpretation Positive (Negative); ANA Titer Pattern 1:80 Homogeneous
[2022-06-13 18:00] LABS: HLA-B27 Result Negative
[2022-06-14 17:08] LABS: Anaplasma phagocytophilum Negative (Negative); B. miyamotoi PCR Negative (Negative); Babesia divergens/MO-1 Negative (Negative); Babesia duncani Negative (Negative); Babesia microti Negative (Negative); Ehrlichia chaffeensis Negative (Negative); Ehrlichia ewingii/canis Negative (Negative); Ehrlichia muris eauclairensis Negative (Negative)
== END 2022-06-09 18:44 | disposition home or self-care (01) ==
LOC: NCHCN 18:43
PROVIDERS: PCP Family Medicine; Visit Provider Family Medicine
DX: E04.1 Nontoxic single thyroid nodule (principal); K57.92 Diverticulitis of intestine, part unspecified, without perforation or abscess without bleeding; M25.50 Pain in unspecified joint; M45.9 Ankylosing spondylitis of unspecified sites in spine; Z11.4 Encounter for screening for human immunodeficiency virus [HIV]; Z11.59 Encounter for screening for other viral diseases
CPT/HCPCS: 80053; 85652; 86803; 86812; 87389; 87798; 84439; 84443; 85025; 86038; 86140; 86431; 86618

== ENCOUNTER → 2022-07-27 01:25 | Outpatient (CLI) | payer BC, SELFPAY ==
--- NOTE | 2022-07-27 | DI.MAMMO_ITS ---
Exam(s) MAMMO SCREENING EXAM: MAMMO SCREENING CLINICAL HISTORY: SCREENING,Z12.31 TECHNIQUE: Bilateral full field digital CC and MLO mammographic images were obtained with 3D tomosyn thesis and utilizing computer aided detection (CAD). COMPARISON: Available for comparison. FINDINGS: Masses/Architectural Distortion: There is a small asymmetric density in the retroareolar region of th e right breast seen on the mediolateral oblique view. This may represent overlying fibroglandular ti ssue. Microcalcifications: No suspicious pleomorphic-type are seen. Skin Thickening/Nipple Retraction: None. IMPRESSION: 1. Small asymmetric density in the retroareolar region of the right breast on the MLO view. 2. This area should be further evaluated with a spot compression view. Ultrasound may be indicated a t that time. BI-RADS Category 0 - Assessment Incomplete: Need additional imaging evaluation Breast Density - Category B - Scattered areas of fibroglandular density Breast density category C or D implies that the patient has dense breast tissue. Dense breast tissue is very common and is not abnormal but dense breast tissue can make it harder to find cancer on a ma mmogram. Also, dense breast tissue may increase their breast cancer risk. This information about the result of the mammogram report was provided to the patient to raise their awareness. Use this report when you speak with the patient about their risks for breast cancer, which includes their family hist ory. At that time, you may recommend for more screening tests (Ultrasound or MRI) as they might be us eful based on their risk. A negative radiographic report should not delay biopsy if a dominant or clinically suspicious mass is present. Up to ten percent of cancers are not identified on mammography. A negative report may reinforce clinical impression. Adenosis and dense breasts may obscure an underlying neoplasm. False positive reports average 6 to 10%. Patient will receive a letter notifying them of these results.
== END ==
PROVIDERS: PCP Family Medicine; Visit Provider Family Medicine
DX: Z12.31 Encounter for screening mammogram for malignant neoplasm of breast (principal); R92.8 Other abnormal and inconclusive findings on diagnostic imaging of breast
CPT/HCPCS: 77063; 77067

== ENCOUNTER → 2022-08-10 02:54 | Outpatient (CLI) | payer BC, SELFPAY ==
--- NOTE | 2022-08-10 | DI.MAMMO_ITS ---
Exam(s) MG MAMMO SCREEN CALL BACK UNI US BREAST RT LIMITED EXAM: MG MAMMO SCREEN CALL BACK UNI and U/S breast RT limited CLINICAL HISTORY: F/U MAMMO, SMALL ASYMMETRIC DENSITY, R92.8. TECHNIQUE: Craniocaudal and mediolateral oblique Full Field Digital Mammography views of the right b reast with Computer Aided Diagnosis followed by Tomosynthesis and right breast ultrasound. COMPARISON: Comparison is made with prior examinations. FINDINGS: Mammography/Tomosynthesis: Masses/Architectural Distortion: The area of concern is less prominent on the current examination. N o suspicious masses or areas of architectural distortion are present. Microcalcifictions: No suspicious pleomorphic-type are seen. Skin Thickening/Nipple Retraction: None. Limited right breast US: Echotexture: Normal appearance of the glandular tissue. Shadowing: No suspicious foci. Cyst: None. Solid lesions: In the subcutaneous tissues at the 6 o'clock position 5 cm from the nipple there is a 0.6 x 0.6 x 0.2 cm cystic lesion. This likely reflects a benign lesion such as a an epidermal inclus ion cysts or small hematoma for example. No suspicious cystic or solid masses are seen. Ductal dilation: None. IMPRESSION: 1. No evidence of malignancy is noted. 2. Unless there is more urgent need, follow-up screening mammography is recommended, as per [employer] guidelines. 3. The findings were discussed with the patient on the date of the examination. BI-RADS Category 1 - Negative Breast Density - Category B - Scattered areas of fibroglandular density Breast density Category C or D implies that the patient has dense breast tissue. Dense breast tissue can make it harder to find cancer on a mammogram. Dense breast tissue is also associated with an incr eased risk of breast cancer. This information about the result of the mammogram report was provided to the patient to raise their awareness. Use this report when you speak with the patient about their risks for breast cancer, which includes their family history. At that time, you may recommend additional screening tests (Ultrasoun d or MRI) as these tests may add significant information. A negative radiographic report should not delay biopsy if a dominant or clinically suspicious mass is present. Up to ten percent of cancers are not identified on mammography. A negative report may reinforce clinical impression. Adenosis and dense breasts may obscure an underlying neoplasm. False positive reports average 6 to 10%. Patient will receive a letter notifying them of these results.
== END ==
PROVIDERS: PCP Family Medicine; Visit Provider Family Medicine
DX: Z12.31 Encounter for screening mammogram for malignant neoplasm of breast (principal); R92.8 Other abnormal and inconclusive findings on diagnostic imaging of breast
CPT/HCPCS: 76642; 77063; 77067

== ENCOUNTER → 2023-05-21 00:37 | Outpatient (CLI) | payer BC, SELFPAY ==
--- NOTE | 2023-05-21 07:08 | DI.MRI_ITS ---
Exam(s) MR LOWER JOINT LT WO EXAM: MR LOWER JOINT LT WO CLINICAL HISTORY: L KNEE PAIN,ACUTE MEDIAL MENISCUS TEAR,s83.242A. TECHNIQUE: Multiplanar multisequence MRI was performed. COMPARISON: CR CR_UNKNOWN from 03/01/2023 FINDINGS: BONES: There is no fracture or contusion pattern. JOINTS: A small joint effusion is present. Articular cartilage: Patellofemoral joint: A tiny defect tech cartilage apex. Medial femoral tibial joint: Articular cartilage is unremarkable. Lateral femoral tibial joint: Articular cartilage is unremarkable. TENDONS: Extensor mechanism: Unremarkable. Medial retinaculum: Unremarkable. Lateral retinaculum: Unremarkable. Popliteus: Unremarkable. MUSCLES: Unremarkable. MENISCI: The medial meniscus shows some intrasubstance change in the body. No discrete tear.. The l ateral meniscus is unremarkable. SOFT TISSUES: Unremarkable. LIGAMENTS: Anterior Cruciate: Unremarkable. Posterior Cruciate: Unremarkable. Medial Collateral:Mild surrounding edema. No visible tear. Lateral Collateral: Unremarkable. OTHER: IMPRESSION: Mildly increased signal in the body of the medial meniscus could represent degenerative changes. No discrete tear. Mild edema around the medial collateral ligament could indicate sprain. No full-thickness tear. DATA REPOSITORY:
== END ==
PROVIDERS: PCP Family Medicine; Visit Provider Student in an Organized Health Care Education/Training Program
DX: M25.562 Pain in left knee (principal)
CPT/HCPCS: 73721

== ENCOUNTER 2024-07-31 12:14 | Outpatient (REF) | payer BC, SELFPAY ==
[2024-07-31 16:25] LABS: HCT 44.9 % (36.0-46.0); HGB 14.9 g/dL (11.2-15.7); MCH 29.9 pg (27.0-33.0); MCHC 33.2 % (32.0-36.0); MCV 90 fL (80-95); MPV 11.3 fL (8.0-11.0); Platelet Count 257 10^3/uL (130-400); RBC 4.99 10^6/uL (3.93-5.22); RDW 12.9 % (11.7-14.6); RDW-SD 42.4 fL; WBC 5.08 10^3/uL (4.4-10.8)
[2024-07-31 16:59] LABS: ESR 37 mm/hr (0-30)
[2024-07-31 17:33] LABS: ALT 17 U/L (14-59); AST 18 U/L (15-37); Albumin 3.8 g/dL (3.4-5.0); Alkaline Phosphatase 98 U/L (46-116); Anion Gap 12.8 mmol/L (3-11); BUN 9 mg/dL (7-18); Bilirubin, Total 0.42 mg/dL (0.2-1.0); C-Reactive Protein 1.11 mg/dL (<or=0.5); CO2 23.2 mmol/L (21.0-32.0); CREATININE 0.8 mg/dL (0.55-1.02); Calcium 9.6 mg/dL (8.5-10.1); Calculated LDL 173 mg/dL (<100); Chloride 104 mmol/L (98-107); Cholesterol 263 mg/dL (<200); Estimated GFR 85.35 (mL/min/1.73m2); Glucose 101 mg/dL (74-106); HDL Cholesterol 68 mg/dL (40-60); Potassium 4.6 mmol/L (3.5-5.1); Sodium 140 mmol/L (136-145); TSH (W/Ref FT4) 0.78 uIU/mL (0.36-3.74); Triglyceride 110 mg/dL (<150); Vitamin B12 535 pg/mL (193-986)
[2024-08-01 11:38] LABS: Lyme Ab w Rflx to Lyme Confirm Negative (Negative)
[2024-08-03 09:37] LABS: Anaplasma phagocytophilum Negative (Negative); B. miyamotoi PCR Negative (Negative); Babesia divergens/MO-1 Negative (Negative); Babesia duncani Negative (Negative); Babesia microti Negative (Negative); Ehrlichia chaffeensis Negative (Negative); Ehrlichia ewingii/canis Negative (Negative); Ehrlichia muris eauclairensis Negative (Negative)
== END 2024-07-31 12:15 | disposition home or self-care (01) ==
LOC: NCHCN 12:14
PROVIDERS: PCP Family Medicine; Visit Provider Family Medicine
DX: Z00.00 Encounter for general adult medical examination without abnormal findings (principal); M25.59 Pain in other specified joint; E03.9 Hypothyroidism, unspecified
CPT/HCPCS: 80053; 80061; 85027; 85652; 87798; 82607; 83036; 84443; 86140; 86618

== ENCOUNTER 2024-08-15 01:14 | Outpatient (CLI) | payer BC, SELFPAY ==
--- NOTE | 2024-08-15 | DI.CTLCSR_ITS ---
Exam(s) CT CHEST LUNG CANCER SCREEN EXAM: CT CHEST LUNG CANCER SCREEN CLINICAL HISTORY: F17.210 NICOTINE DEPENDENCE TECHNIQUE: Imaging Protocol: Axial computed tomography images with coronal and sagittal reformatted images were created and reviewed. Low dose screening protocol. COMPARISON: No exams were available for comparison FINDINGS: Tracheobronchial tree: No bronchiectasis or mucus plugging. Mediastinum and Lorenza: No dominant adenopathy or fluid collection. Pulmonary parenchyma: No consolidation or dominant measurable mass. Minimal emphysematous changes. No significant interstitial changes. Lung Nodules: 9 millimeter mean diameter nodule medial right lower lobe. 10 x 8 x 13 millimeter nodu le medial left lower lobe. Pleura: No effusion. No pneumothorax. Heart: The heart is not dilated. No coronary artery calcifications are seen. No pericardial effusion. Aorta: Thoracic aorta non-dilated. Upper abdomen: Unremarkable. Bones: Unremarkable for age. Soft Tissues: Unremarkable. IMPRESSION: Nodules at both lung bases, greater than 8 millimeters Lung RADS Cat 4A - Suspicious: Findings for which additional diagnostic testing and/or tissue samplin g recommended Lung-RADS 1.0 CATEGORIES: Category 0 - Prior chest CT exam(s) being located for comparison. Category 1 - Annual screening in 12 months. No nodules or definitely benign nodules. Category 2 - Annual screening in 12 months. Benign appearance. Nodules with low likelihood of becomin g active cancer. Category 3 - 6-month follow-up. Probably benign. Short-term follow-up suggested. Nodules with low lik elihood of becoming active cancer. Category 4A - 3-month follow-up and CT/PET if >8 mm in size. Suspicious finding. Findings which requi re additional testing. Category 4B - Findings which require additional testing and tissue sampling. Category 4X - Category 3 or 4 nodules with additional features or imaging findings that increases the suspicion of malignancy. Modifier S- Potentially clinically significant findings (non lung cancer) RADIATION DOSE DELIVERED: !Error Total DLP DATA REPOSITORY: All CT scans at this facility are submitted to the National Radiology Data Registry (NRDR) Dose Index Registry (DIR) with the [employer] (A[employer]). RADIATION OPTIMIZATION: All CT scans at this facility use at least one of these dose optimization te chniques: automated exposure control; mA and/or kV adjustment per patient size (includes targeted exa ms where dose is matched to clinical indication); or iterative reconstruction.
--- NOTE | 2024-08-15 | DI.MAMMO_ITS ---
Exam(s) MAMMO SCREENING EXAM: MAMMO SCREENING CLINICAL HISTORY: Z12.31 SCREENING MAMMO TECHNIQUE: Mammograms were interpreted according to the usual protocol including computer analysis w [employer] CAD system, tomosynthesis and C-view imaging. COMPARISON: 2016 through 2021 FINDINGS: The breasts are composed of scattered fibroglandular densities, Breast Density category B. No suspicious masses or suspicious microcalcifications are seen. No skin thickening or abnormal axillary lymph nodes are seen. There has been no significant change from prior exams. IMPRESSION: BI-RADS Category 1, Negative mammogram Yearly screening mammography is recommended. Breast Density - Category B, scattered fibroglandular densities. A negative radiographic report should not delay biopsy if a dominant or clinically suspicious mass is present. Up to ten percent of cancers are not identified on mammography. A negative report may reinforce clinical impression. Adenosis and dense breasts may obscure an underlying neoplasm. False positive reports average 6 to 10%. Patient will receive a letter notifying them of these results.
== END 2024-08-15 01:34 ==
LOC: DI 01:14
PROVIDERS: PCP Family Medicine; Visit Provider Family Medicine
DX: Z12.31 Encounter for screening mammogram for malignant neoplasm of breast (principal); Z12.2 Encounter for screening for malignant neoplasm of respiratory organs; F17.210 Nicotine dependence, cigarettes, uncomplicated; R91.8 Other nonspecific abnormal finding of lung field
CPT/HCPCS: 71271; 77063; 77067

== ENCOUNTER 2024-09-02 03:25 | Outpatient (CLI) | payer BC, SELFPAY ==
[2024-09-02] MEDS: Inhaler, Assist Device 1 EACH MC (09:24)
[2024-09-02] MEDS: Levalbuterol HFA 15 GM INH 4 PUFF IH (09:24)
--- NOTE | 2024-09-03 12:10 | W.PFT ---
Date of service: 09/02/24 Time of Service: 07:59 Pulmonary Function Test Result Indications: Pulmonary nodules Interpretation Spirometry: There is no airflow limitation. There is no bronchodilator response. Lung Volumes: Normal lung volumes Diffusion Capacity: Normal diffusion Airway Pressure: Normal airways resistance Impression Normal pulmonary function testing Clinical Correlation therefore is recommended.
== END 2024-09-02 03:26 | disposition home or self-care (01) ==
LOC: RT 03:25
PROVIDERS: PCP Family Medicine; Visit Provider Student in an Organized Health Care Education/Training Program
DX: R91.8 Other nonspecific abnormal finding of lung field (principal)
CPT/HCPCS: 94060; 94726; 94729